=== PATIENT | male | born 1935 | race Caucasian/White ===

== ENCOUNTER → 2018-11-20 | Outpatient (CLI) | payer MEDICARE, BC ==
--- NOTE | 2018-11-20 16:30 | CT ---
EXAMINATION TYPE: CT abdomen pelvis w con DATE OF EXAM: 11/20/2018 COMPARISON: None HISTORY: Hematuria. CT DLP: 690.5 mGycm CONTRAST: CT scan of the abdomen and pelvis is performed with Oral Contrast and with IV Contrast, patient injec lloyd with 80ml mL of Isovue M300. FINDINGS: LUNG BASES-: 6.2 mm left lower lobe pulmonary nodule. 2 mm left lower lobe pulmonary nodule anteriorl y. Subpleural fibrosis right lung base. LIVER/GB: Calcified gallstone noted. No space occupying hepatic lesion. Biliary tree is of normal caliber. PANCREAS: No inflammation. No distinct mass. SPLEEN: No splenic enlargement. No lesion seen. ADRENALS: No nodule. No thickening. KIDNEYS/BLADDER: No hydronephrosis. No nephrolithiasis. No distinct renal mass. Radioactive seeds are noted within the prostate gland. There is soft tissue at the base of the urinary bladder which ma y reflect residual prostate tissue however a urinary bladder mass is difficult to exclude. Correlate clinically. Renal vascular calcifications noted bilaterally. BOWEL: Normal appendix. Normal bowel caliber. No inflammation. Sliding-type hiatal hernia noted sma ll in size. GENITAL ORGANS: No gross abnormality. LYMPH NODES: No greater than 1cm abdominal or pelvic lymph nodes are appreciated. AORTA: No significant abnormality. OSSEOUS STRUCTURES: No significant abnormality is seen. OTHER: No significant additional abnormality is seen. IMPRESSION: 1. Radioactive seeds are noted within the prostate gland. There is soft tissue at the base of the uri nary bladder which may reflect residual prostate tissue however a urinary bladder mass is difficult t o exclude. Correlate clinically.
== END | disposition home or self-care (01) ==
LOC: RADCTMAIN 12:36
PROVIDERS: ATTEND Urology
DX: R31.0 Gross hematuria (principal)
CPT/HCPCS: 82565; 84520; 74177; 36415; Q9967

== ENCOUNTER → 2018-12-02 | Outpatient (CLI) | payer MEDICARE, BC ==
[2018-12-02 12:52] LABS: Basophils % (A) 0 %; Eosinophils # (A) 0.1 k/uL (0-0.7); Eosinophils % (A) 1 %; HCT 47.8 % (39.0-53.0); HGB 15.5 gm/dL (13.0-17.5); Lymphocytes # (A) 2.1 k/uL (1.0-4.8); Lymphocytes % (A) 25 %; MCH 31.9 pg (25.0-35.0); MCHC 32.3 g/dL (31.0-37.0); MCV 98.7 fL (80.0-100.0); Mean Platelet Volume 7.4; Monocytes # (A) 0.5 k/uL (0-1.0); Monocytes % (A) 6 %; Neutrophils # (A) 5.6 k/uL (1.3-7.7); Neutrophils % (A) 65 %; Platelet Count 265 k/uL (150-450); RBC 4.85 m/uL (4.30-5.90); RDW 12.8 % (11.5-15.5); WBC 8.7 k/uL (3.8-10.6)
[2018-12-02 13:02] LABS: Calcium 9.8 mg/dL (8.4-10.2); Potassium 5.2 mmol/L (3.5-5.1)
== END ==
LOC: LABPAT 11:40
PROVIDERS: ATTEND Urology
DX: Z01.818 Encounter for other preprocedural examination (principal); Z01.812 Encounter for preprocedural laboratory examination; D41.4 Neoplasm of uncertain behavior of bladder; I10 Essential (primary) hypertension; R31.0 Gross hematuria
CPT/HCPCS: 36415; 80048; 85025; 93005

== ENCOUNTER 2018-12-10 07:06 | Day surgery (SDC) | payer MEDICARE, BC ==
[2018-12-03 10:40] VITALS: BMI 22.4
--- NOTE | 2018-12-03 21:01 | P.GSHP ---
History of Present Illness H&P Date: 12/03/18 Chief Complaint: Hematuria The patient is an 83-year-old white male who presents with a three-month history of intermittent gross hematuria. He underwent brachytherapy for prostate cancer in 2002. A computed tomography scan of the abdomen and pelvis showed no renal abnormalities. Cystoscopy has shown a sessile tumor arising from the left hemitrigone. He now comes for resection. - Constitutional Constitutional: Reports weight loss - Cardiovascular Cardiovascular: Reports high blood pressure - Respiratory Respiratory: Reports dyspnea - Genitourinary (Male) Genitourinary: Reports hematuria, Reports urinary frequency Past Medical History Past Medical History: Cancer, Hyperlipidemia, Hypertension, Osteoarthritis (OA) Additional Past Medical History / Comment(s): irregular heart rate,prostate cancer, bladder tumor History of Any Multi-Drug Resistant Organisms: None Reported Past Surgical History: Heart Catheterization, Prostate Surgery Additional Past Surgical History / Comment(s): hemorrhoid surgery Past Anesthesia/Blood Transfusion Reactions: No Reported Reaction Smoking Status: Current every day smoker - Past Family History Mother Family Medical History: No Reported History Medications and Allergies Home Medications Medication Instructions Recorded Confirmed Type Aspirin [Adult Low Dose Aspirin EC] 81 mg PO HS 12/03/18 12/03/18 History Atenolol [Tenormin] 25 mg PO HS 12/03/18 12/03/18 History Lisinopril [Zestril] 2.5 mg PO HS 12/03/18 12/03/18 History Multivitamins, Thera [Multivitamin 1 tab PO HS 12/03/18 12/03/18 History (formulary)] Simvastatin [Zocor] 40 mg PO HS 12/03/18 12/03/18 History Allergies Allergy/AdvReac Type Severity Reaction Status Date / Time No Known Allergies Allergy Verified 12/03/18 10:33 Surgical - Exam - General well developed, well nourished, no distress - Respiratory normal respiratory effort, clear to auscultation - Cardiovascular Rhythm: irregularly irregular - Abdomen Abdomen: soft, non tender, no guarding, no rigid, no rebound - Genitourinary normal penis with no external lesions, testicles non-tender - Psychiatric oriented to time, oriented to person, oriented to place, speech is normal, memory intact Assessment and Plan (1) Neoplasm of uncertain behavior of bladder Status: Acute Code(s): D41.4 - NEOPLASM OF UNCERTAIN BEHAVIOR OF BLADDER SNOMED Code(s): 47145945 Plan: Cystoscopy, transurethral resection of bladder tumor. The procedure has been reviewed in detail with the patient and his . They understand that the tumor is likely malignant in nature, and the rationale for transurethral resection has been discussed. Potential risks were also discussed, which include anesthesia, bleeding, infection, postoperative urinary retention, and bladder perforation.
[~2018-12-10 07:06] MED LIST: DEXAMETHASONE SOD PHOSPHATE 10 MG/ML 1 ML VIAL IV ONE; HYDROmorphone 0.5 MG/0.5 ML SYRINGE IVP PRN; LACTATED RINGERS 1,000 ML IV SCH; LIDOCAINE 1% 20 ML VIAL (10MG/ML) FOR IV START INTRADERMA PRN; MIDAZOLAM 2 MG/2 ML VIAL IV PRN; ONDANSETRON 4 MG/2 ML VIAL IVP ONE; SCOPOLAMINE 1.5MG/72HR PATCH TRANSDERM ONE; ceFAZolin IN SWFI 2 GM/20 ML SYRINGE IVP ONE
[2018-12-10] MEDS ORDERED: PROPOFOL 10 MG/ML 20 ML VIAL IV ONE (08:36)
[2018-12-10] MEDS ORDERED: FUROSEMIDE 10 MG/ML 2 ML VIAL ONE (08:36)
[2018-12-10] MEDS ORDERED: ROCURONIUM BROMIDE 10 MG/ML 10 ML VIAL IV ONE (08:36)
[2018-12-10] MEDS ORDERED: LIDOCAINE 1% INJ 10MG/ML (20 ML MDV) ONE (08:36)
[2018-12-10] MEDS ORDERED: PHENYLEPHRINE-0.9% NACL SYG 1 MG/10 ML SYRINGE ONE (08:36)
[2018-12-10] MEDS ORDERED: ePHEDrine SULFATE/0.9% NACL/PF 50 MG/5 ML SYRINGE IV ONE (08:36)
[2018-12-10] MEDS ORDERED: GLYCOPYRROLATE 0.2 MG/ML 2 ML VIAL ONE (08:36)
[2018-12-10] MEDS ORDERED: MIDAZOLAM 2 MG/2 ML VIAL ONE (08:36)
[2018-12-10] MEDS ORDERED: NEOSTIGMINE 1 MG/ML 10 ML VIAL ONE (08:36)
[2018-12-10] MEDS ORDERED: SUCCINYLCHOLINE CHLORIDE 100 MG/5 ML SYR IV ONE (08:36)
[2018-12-10] MEDS ORDERED: fentaNYL (PF) 50 MCG/ML 2 ML AMP ONE (08:36)
[2018-12-10] MEDS ORDERED: MORPHINE SULFATE 10 MG/ML SYRINGE ONE (08:36)
[2018-12-10] MEDS ORDERED: LACTATED RINGERS 1,000 ML IV ONE (09:37)
[2018-12-10] MEDS ORDERED: FUROSEMIDE 10 MG/ML 2 ML VIAL IV ONE (09:55)
--- NOTE | 2018-12-10 10:08 | P.OP ---
Date of Procedure: 12/10/18 Preoperative Diagnosis: Bladder Tumor Postoperative Diagnosis: Same Procedure(s) Performed: Cystoscopy, TURBT (Large) Anesthesia: INNA Surgeon: Sukh Law Estimated Blood Loss (ml): 50 IV fluids (ml): 700 Pathology: other (bladder tumor fragments) Condition: stable Disposition: PACU Indications for Procedure: The patient is an 83-year-old white male who presents with a three-month history of intermittent gross hematuria. He underwent brachytherapy for prostate cancer in 2002. A computed tomography scan of the abdomen and pelvis showed no renal abnormalities. Cystoscopy has shown a sessile tumor arising from the left hemitrigone. He now comes for resection. Operative Findings: Large, sessile tumor arising from posterior bladder wall. Description of Procedure: The patient was taken in the operating room and placed in the dorsal lithotomy position, with his legs supported in Leeroy stirrups. The external genitalia was prepped and draped sterilely. The Johnnie urethrotome was used to incise the urethra to 25-Namibian. The 24-Namibian Storz resectoscope sheath was introduced into the bladder. The prostatic urethra was "snug", and the resectoscope was placed under direct vision. No tumors were seen within the prostatic urethra. The bladder was inspected. A large, sessile tumor was seen arising from the posterior bladder wall and left hemitrigone. The right ureteral orifice was identified, and clear urine effluxed from it. The left ureteral orifice was not identified. Using the cutting loop, the tumor was resected down to the muscle. The tumor has a high-grade, muscle invasive appearance. Excellent hemostasis was attained. The resected tissue was saved and sent for pathologic examination. A 20-Namibian Tillman catheter was inserted. The return was clear. The patient tolerated the procedure well. He was taken to the recovery room in stable condition.
[2018-12-10 10:31] VITALS: TEMP 96.9
[2018-12-10 10:32] VITALS: RESP 16
[2018-12-10 12:13] VITALS: BP 117/74; PULSE 66
== END 2018-12-10 12:13 | disposition home or self-care (01) ==
LOC: OR 07:06
PROVIDERS: ATTEND Urology
DX: C67.4 Malignant neoplasm of posterior wall of bladder (principal); Z85.46 Personal history of malignant neoplasm of prostate; Z92.3 Personal history of irradiation; E78.5 Hyperlipidemia, unspecified; I10 Essential (primary) hypertension; M19.90 Unspecified osteoarthritis, unspecified site; F17.200 Nicotine dependence, unspecified, uncomplicated; Z79.82 Long term (current) use of aspirin; Z79.899 Other long term (current) drug therapy
CPT/HCPCS: 84132; 88307; 52240; J2250; J1100; J1940; J2710; J2270; J2405; J2001; J3010; J2370; J0330; J2704; J0690

== ENCOUNTER 2019-09-02 12:21 | Inpatient (IN) | payer MEDICARE, BC ==
[2019-09-02] MEDS ORDERED: SODIUM CHLORIDE 0.9% 1,000 ML IV STA (12:49)
[2019-09-02] MEDS ORDERED: IPRATROPIUM-ALBUTEROL 3 ML NEB INHALATION STA (12:49)
--- NOTE | 2019-09-02 12:56 | ED ---
SOB HPI - General Chief Complaint: Shortness of Breath Stated Complaint: ARNOL Time Seen by Provider: 09/02/19 12:37 Source: patient, family, RN notes reviewed Mode of arrival: wheelchair Limitations: no limitations - History of Present Illness Initial Comments: This 85-year-old male with a history of bladder cancer and this and states per family also history of A. fib hypertension of a cholesterol who still smokes intermittently though he is ever diagnosed with COPD asthma or emphysema who states she's had shortness of breath is been going on for a couple months but now over last week is gotten progressively worse with exertional dyspnea. He states she's had edema to his lower extremities or last week also. He's had some weight loss because of decreased oral intake. He denies any fevers chills nausea vomiting sweats or other symptoms. He is working at a [employer] and was exposed to paper fibers as well as chemicals. MD Complaint: shortness of breath - Related Data Home Medications Medication Instructions Recorded Confirmed Aspirin [Adult Low Dose Aspirin EC] 81 mg PO HS 12/03/18 09/02/19 Atenolol [Tenormin] 25 mg PO HS 12/03/18 09/02/19 Lisinopril [Zestril] 2.5 mg PO HS 12/03/18 09/02/19 Multivitamins, Thera [Multivitamin 1 tab PO HS 12/03/18 09/02/19 (formulary)] Allergies Allergy/AdvReac Type Severity Reaction Status Date / Time No Known Allergies Allergy Verified 09/02/19 13:11 Review of Systems ROS Statement: Those systems with pertinent positive or pertinent negative responses have been documented in the HPI. ROS Other: All systems not noted in ROS Statement are negative. Past Medical History Past Medical History: Cancer, Hyperlipidemia, Hypertension, Osteoarthritis (OA) Additional Past Medical History / Comment(s): irregular heart rate,prostate cancer, bladder tumor History of Any Multi-Drug Resistant Organisms: None Reported Past Surgical History: Heart Catheterization, Prostate Surgery Additional Past Surgical History / Comment(s): hemorrhoid surgery bladder surg Past Anesthesia/Blood Transfusion Reactions: No Reported Reaction Past Psychological History: No Psychological Hx Reported Smoking Status: Current every day smoker Past Alcohol Use History: None Reported Past Drug Use History: None Reported - Past Family History Mother Family Medical History: No Reported History General Exam - General Exam Comments Initial Comments: This is a well-developed asthenic appearing male who is awake alert oriented 3 Limitations: no limitations General appearance: alert, in no apparent distress Head exam: Present: atraumatic, normocephalic, normal inspection Eye exam: Present: normal appearance, PERRL, EOMI. Absent: scleral icterus, conjunctival injection, periorbital swelling ENT exam: Present: mucous membranes dry Neck exam: Present: normal inspection. Absent: tenderness, meningismus, lymphadenopathy Respiratory exam: Present: decreased breath sounds. Absent: respiratory distress, wheezes, rales, rhonchi, stridor Cardiovascular Exam: Present: tachycardia, irregular rhythm. Absent: systolic murmur, diastolic murmur, rubs, gallop, clicks GI/Abdominal exam: Present: soft, normal bowel sounds. Absent: distended, tenderness, guarding, rebound, rigid Extremities exam: Present: full ROM, normal capillary refill, pedal edema. Absent: tenderness, joint swelling, calf tenderness Back exam: Present: normal inspection Neurological exam: Present: alert, oriented X3, CN II-XII intact Psychiatric exam: Present: normal affect, normal mood Skin exam: Present: warm, dry, intact, normal color. Absent: rash Course Vital Signs 09/02/19 09/02/19 09/02/19 12:31 12:57 13:06 Temperature 97.4 F L Pulse Rate 76 72 72 Respiratory 18 16 16 Rate Blood Pressure 90/50 O2 Sat by Pulse 89 L Oximetry 09/02/19 09/02/19 13:47 13:52 Temperature Pulse Rate 120 H Respiratory 18 Rate Blood Pressure 132/77 O2 Sat by Pulse 92 L 100 Oximetry - Reevaluation(s) Reevaluation #1: 09/02/19 15:47 Reevaluation patient revealed he had some improvement after the nebulizer treatment during observation however was on his heart rate was as high as in the 130s 140s. I did discuss these Dr. Santillan the patient will be admitted for treatment of pneumonia. Due to the atrial fibrillation and will consult cardiology. Medical Decision Making - Lab Data Result diagrams: 09/02/19 13:00 09/02/19 13:00 Lab Results 09/02/19 09/02/19 09/02/19 Range/Units 13:00 13:00 13:52 WBC 13.8 H (3.8-10.6) k/uL RBC 3.74 L (4.30-5.90) m/uL Hgb 10.0 L (13.0-17.5) gm/dL Hct 33.5 L (39.0-53.0) % MCV 89.7 (80.0-100.0) fL MCH 26.7 (25.0-35.0) pg MCHC 29.8 L (31.0-37.0) g/dL RDW 14.4 (11.5-15.5) % Plt Count 270 (150-450) k/uL Neutrophils % 81 % Lymphocytes % 11 % Monocytes % 5 % Eosinophils % 0 % Basophils % 0 % Neutrophils # 11.2 H (1.3-7.7) k/uL Lymphocytes # 1.5 (1.0-4.8) k/uL Monocytes # 0.7 (0-1.0) k/uL Eosinophils # 0.0 (0-0.7) k/uL Basophils # 0.0 (0-0.2) k/uL Hypochromasia Marked Poikilocytosis Slight PT (9.0-12.0) sec INR (<1.2) APTT (22.0-30.0) sec Sodium 142 (137-145) mmol/L Potassium 4.4 (3.5-5.1) mmol/L Chloride 110 H (98-107) mmol/L Carbon Dioxide 20 L (22-30) mmol/L Anion Gap 12 mmol/L BUN 19 (9-20) mg/dL Creatinine 1.07 (0.66-1.25) mg/dL Est GFR (CKD-EPI)AfAm 75 (>60 ml/min/1.73 sqM) Est GFR (CKD-EPI)NonAf 65 (>60 ml/min/1.73 sqM) Glucose 111 H (74-99) mg/dL Calcium 9.0 (8.4-10.2) mg/dL Magnesium 2.0 (1.6-2.3) mg/dL Total Bilirubin 0.7 (0.2-1.3) mg/dL AST 62 H (17-59) U/L ALT 20 L (21-72) U/L Alkaline Phosphatase 119 (38-126) U/L Troponin I <0.012 (0.000-0.034) ng/mL NT-Pro-B Natriuret Pep pg/mL Total Protein 6.9 (6.3-8.2) g/dL Albumin 3.2 L (3.5-5.0) g/dL 09/02/19 09/02/19 Range/Units 13:52 13:52 WBC (3.8-10.6) k/uL RBC (4.30-5.90) m/uL Hgb (13.0-17.5) gm/dL Hct (39.0-53.0) % MCV (80.0-100.0) fL MCH (25.0-35.0) pg MCHC (31.0-37.0) g/dL RDW (11.5-15.5) % Plt Count (150-450) k/uL Neutrophils % % Lymphocytes % % Monocytes % % Eosinophils % % Basophils % % Neutrophils # (1.3-7.7) k/uL Lymphocytes # (1.0-4.8) k/uL Monocytes # (0-1.0) k/uL Eosinophils # (0-0.7) k/uL Basophils # (0-0.2) k/uL Hypochromasia Poikilocytosis PT 10.3 (9.0-12.0) sec INR 1.0 (<1.2) APTT 22.0 (22.0-30.0) sec Sodium (137-145) mmol/L Potassium (3.5-5.1) mmol/L Chloride (98-107) mmol/L Carbon Dioxide (22-30) mmol/L Anion Gap mmol/L BUN (9-20) mg/dL Creatinine (0.66-1.25) mg/dL Est GFR (CKD-EPI)AfAm (>60 ml/min/1.73 sqM) Est GFR (CKD-EPI)NonAf (>60 ml/min/1.73 sqM) Glucose (74-99) mg/dL Calcium (8.4-10.2) mg/dL Magnesium (1.6-2.3) mg/dL Total Bilirubin (0.2-1.3) mg/dL AST (17-59) U/L ALT (21-72) U/L Alkaline Phosphatase (38-126) U/L Troponin I (0.000-0.034) ng/mL NT-Pro-B Natriuret Pep 2560 pg/mL Total Protein (6.3-8.2) g/dL Albumin (3.5-5.0) g/dL - EKG Data -: EKG Interpreted by Me (Atrial fibrillation with a rate of 124 QRS 92 QT since QTC 332/476 low-volt) Critical Care Time Critical Care Time: Yes Critical Care Time: 33 minutes of critical care time which includes initial presentation with history physical labs x-rays several reevaluation the patient response to therapy discuss with the patient family regarding the findings discussion with the admitting physician admission orders and documentation of the above Disposition Clinical Impression: Community acquired bilateral lower lobe pneumonia, Acute bronchospasm, Rapid atrial fibrillation, CHF (congestive heart failure), Bladder cancer Disposition: ADMITTED IP TO THIS HOSP Condition: Serious Referrals: Zuhair Call DO [Primary Care Provider] - 1-2 days
[2019-09-02 13:20] LABS: Albumin 3.2 g/dL (3.5-5.0); Total Bilirubin 0.7 mg/dL (0.2-1.3); Total Protein 6.9 g/dL (6.3-8.2)
[2019-09-02 13:24] LABS: Potassium 4.4 mmol/L (3.5-5.1)
[2019-09-02 13:35] LABS: Basophils % (A) 0 %; Eosinophils % (A) 0 %; HCT 33.5 % (39.0-53.0); Hypochromasia Marked; Lymphocytes # (A) 1.5 k/uL (1.0-4.8); Lymphocytes % (A) 11 %; MCH 26.7 pg (25.0-35.0); MCHC 29.8 g/dL (31.0-37.0); MCV 89.7 fL (80.0-100.0); Monocytes # (A) 0.7 k/uL (0-1.0); Monocytes % (A) 5 %; Neutrophils # (A) 11.2 k/uL (1.3-7.7); Neutrophils % (A) 81 %; Platelet Count 270 k/uL (150-450); Poikilocytosis Slight; RBC 3.74 m/uL (4.30-5.90); RDW 14.4 % (11.5-15.5); WBC 13.8 k/uL (3.8-10.6)
--- NOTE | 2019-09-02 13:36 | XR ---
EXAMINATION TYPE: XR chest 2V DATE OF EXAM: 09/02/2019 COMPARISON: NONE TECHNIQUE: PA and lateral views submitted. HISTORY: Shortness of breath FINDINGS: There is a small left pleural effusion and tiny right effusion. There is a nodular density overlying the lateral margin of the right midlung. The heart is prominent. There is no pneumothorax or overt fa ilure. Degenerative changes spine. Hyperinflation suggests COPD. Suspect a soft tissue fold along the lateral margin left lower lobe. IMPRESSION: 1. COPD with bilateral infiltrate and small effusion. 7 mm nodule in the right midlung CT scan sugges lloyd. 2. Suspect a soft tissue fold overlying the lower left chest rather than small pneumothorax correlate clinically.
[2019-09-02 14:14] LABS: Prothrombin Time 10.3 sec (9.0-12.0)
[2019-09-02] MEDS ORDERED: cefTRIAXone IN SWFI 1,000 MG/10 ML SYRINGE IVP STA (15:35)
[2019-09-02] MEDS ORDERED: FUROSEMIDE 10 MG/ML 4 ML VIAL IV STA (15:52)
[2019-09-02] MEDS ORDERED: AZITHROMYCIN 500 MG in SODIUM CHLORIDE 0.9% 250 ML IVPB STA (15:55)
[2019-09-02] MEDS ORDERED: PNEUMONIA PROTOCOL UTILIZED 1 EACH MISC PO PRN (15:55)
[2019-09-02] MEDS: DILTIAZEM 125 MG in SODIUM CHLORIDE 0.9% 100 ML IV SCH (16:36)
[2019-09-02] MEDS: IPRATROPIUM-ALBUTEROL 3 ML NEB INHALATION SCH ×2 (17:11→20:54)
[2019-09-02] MEDS: methylPREDNISolone SOD SUCCI 125 MG/2 ML VIAL IV SCH (19:57)
[2019-09-02] MEDS ORDERED: ASPIRIN 81 MG PO SCH (21:00)
[2019-09-02] MEDS ORDERED: ATENOLOL 25 MG TAB PO SCH (21:00)
[2019-09-02] MEDS: MULTIVITAMINS, THERA 1 EACH TAB PO SCH (21:45)
[2019-09-02] MEDS: LISINOPRIL 2.5 MG TAB PO SCH (21:45)
[2019-09-03] MEDS: methylPREDNISolone SOD SUCCI 125 MG/2 ML VIAL IV SCH ×5 (00:03→23:51)
[2019-09-03] MEDS: IPRATROPIUM-ALBUTEROL 3 ML NEB INHALATION SCH ×6 (03:24→20:48)
[2019-09-03 08:29] LABS: Basophils % (A) 0 %; Eosinophils % (A) 0 %; HCT 29.2 % (39.0-53.0); HGB 8.9 gm/dL (13.0-17.5); Hypochromasia Marked; Lymphocytes # (A) 0.9 k/uL (1.0-4.8); Lymphocytes % (A) 8 %; MCH 27.5 pg (25.0-35.0); MCHC 30.5 g/dL (31.0-37.0); MCV 90.3 fL (80.0-100.0); Mean Platelet Volume 6.2; Monocytes # (A) 0.1 k/uL (0-1.0); Monocytes % (A) 1 %; Neutrophils # (A) 10.4 k/uL (1.3-7.7); Neutrophils % (A) 91 %; Platelet Count 269 k/uL (150-450); Poikilocytosis Slight; RBC 3.24 m/uL (4.30-5.90); RDW 14.2 % (11.5-15.5); WBC 11.5 k/uL (3.8-10.6)
[2019-09-03 08:32] LABS: Calcium 8.7 mg/dL (8.4-10.2); Potassium 3.3 mmol/L (3.5-5.1); Total Bilirubin 0.5 mg/dL (0.2-1.3); Total Protein 6.4 g/dL (6.3-8.2)
[2019-09-03] MEDS: AZITHROMYCIN 500 MG TAB PO SCH (08:41)
--- NOTE | 2019-09-03 11:03 | P.CRDCN ---
History of Present Illness Consult date: 09/03/19 Requesting physician: Hali Santillan Consult reason: atrial fibrillation Chief complaint: Shortness of breath History of present illness: This is an 84-year-old gentleman who follows regularly with Dr. Cardona in the office, he has a history of bladder cancer, hypertension, hyperlipidemia, nicotine dependence, COPD, presented to the hospital with 2 to three-week duration of progressively worsening shortness of breath. Patient does state that he has a mild cough but it has been nonproductive at home. Shortness of breath seems to be worse when he exerts himself. EKG on presentation here showed atrial fibrillation with a rapid ventricular response, occasional PVCs. Incomplete right bundle branch block pattern. According to Dr. Cardona's office note, the patient does have a history of atrial fibrillation in the past. It does not appear that the patient had been initiated on anticoagulation. Chest x-ray on presentation here showed COPD with bilateral infiltrate and small effu raymond. 7 mm nodule in the right midlung computed tomography scan is recommended. Suspect a soft tissue fold-over overlying the left lower chest rather than small pneumothorax. Blood pressure this morning 97/50 with a heart rate in the 90s. Patient continues to be in atrial fibrillation. White blood cell count on admission 13.8, 11.5 this morning, hemoglobin 10 on admission 8.9 this morning, platelet count 269. Sodium 145, potassium 3.3, BUN 22 and creatinine 1.0. Magnesium level 2.0. Troponin 0.012, BNP level 2560. Past Medical History Past Medical History: Cancer, Hyperlipidemia, Hypertension, Osteoarthritis (OA) Additional Past Medical History / Comment(s): irregular heart rate,prostate cancer, bladder tumor History of Any Multi-Drug Resistant Organisms: None Reported Past Surgical History: Heart Catheterization, Prostate Surgery Additional Past Surgical History / Comment(s): hemorrhoid surgery bladder surg Past Anesthesia/Blood Transfusion Reactions: No Reported Reaction Past Psychological History: No Psychological Hx Reported Smoking Status: Light tobacco smoker Past Alcohol Use History: None Reported Additional Past Alcohol Use History / Comment(s): pt states he smokes 2-3 cigarettes in a day, but not an every day smoker. Past Drug Use History: None Reported - Past Family History Mother Family Medical History: No Reported History Medications and Allergies Home Medications Medication Instructions Recorded Confirmed Type Aspirin [Adult Low Dose Aspirin EC] 81 mg PO HS 12/03/18 09/02/19 History Atenolol [Tenormin] 25 mg PO HS 12/03/18 09/02/19 History Lisinopril [Zestril] 2.5 mg PO HS 12/03/18 09/02/19 History Multivitamins, Thera [Multivitamin 1 tab PO HS 12/03/18 09/02/19 History (formulary)] Allergies Allergy/AdvReac Type Severity Reaction Status Date / Time No Known Allergies Allergy Verified 09/02/19 13:11 Physical Exam Vitals: Vital Signs Temp Pulse Pulse Resp BP BP Pulse Ox 09/03/19 08:00 97.5 F L 68 67 18 97/53 09/03/19 07:17 64 09/03/19 04:00 98.2 F 75 16 101/62 100 09/03/19 03:33 68 09/03/19 03:24 69 99 09/03/19 00:13 68 09/03/19 00:04 68 09/03/19 00:00 98.2 F 68 16 99/57 100 09/02/19 21:07 72 09/02/19 20:55 70 99 09/02/19 20:30 98 F 89 16 131/66 98 09/02/19 20:00 98.1 F 99 94 16 120/70 128/65 96 09/02/19 19:40 73 18 120/70 99 09/02/19 19:38 91 19 99 09/02/19 18:00 93 20 110/69 97 09/02/19 15:56 87 20 142/84 96 09/02/19 15:00 88 20 142/76 98 09/02/19 13:52 100 09/02/19 13:47 120 H 18 132/77 92 L 09/02/19 13:06 72 16 09/02/19 12:57 72 16 09/02/19 12:31 97.4 F L 76 18 90/50 89 L Intake and Output 09/02/19 09/03/19 09/03/19 22:59 06:59 14:59 Intake Total 200 72 Balance 200 72 Intake: Intake, IV Titration 200 72 Amount Diltiazem 125 mg In 72 Sodium Chloride 0.9% 100 ml @ 5 MG/HR 5 mls/hr IV .Q24H [facility] Rx#:[id number] Sodium Chloride 0.9% 1, 200 000 ml @ 50 mls/hr IV . Q20H [facility] Rx#:[id number] Other: Voiding Method Toilet Toilet # Voids 1 Weight 58.7 kg PHYSICAL EXAMINATION: GENERAL: 84-year-old gentleman in no acute stress at the time of my examination HEENT: Head is atraumatic, normocephalic. Pupils equal, round. Sclera anicteric. Conjunctiva are clear. Mucous membranes of the mouth are moist. Neck is supple. There is no elevated jugular venous pressure. No carotid bruit is heard. HEART EXAMINATION: S1 and S2 irregularly irregular CHEST EXAMINATION: Lungs reveal some scattered wheezes with diminished air entry to bilateral bases. ABDOMEN: Soft, nontender. Bowel sounds are heard. No organomegaly noted. EXTREMITIES: 2+ peripheral pulses with trace edema to the right lower extremity no edema to the left . NEUROLOGIC patient is awake, alert and oriented 3 . . Results 09/03/19 07:50 09/03/19 07:50 Cardiac Enzymes 09/02/19 09/02/19 09/03/19 Range/Units 13:00 13:52 07:50 AST 62 H 43 (17-59) U/L Troponin I <0.012 (0.000-0.034) ng/mL Coagulation 09/02/19 Range/Units 13:52 PT 10.3 (9.0-12.0) sec APTT 22.0 (22.0-30.0) sec CBC 09/02/19 09/03/19 Range/Units 13:00 07:50 WBC 13.8 H 11.5 H (3.8-10.6) k/uL RBC 3.74 L 3.24 L (4.30-5.90) m/uL Hgb 10.0 L 8.9 L (13.0-17.5) gm/dL Hct 33.5 L 29.2 L (39.0-53.0) % Plt Count 270 269 (150-450) k/uL Comprehensive Metabolic Panel 09/02/19 09/03/19 Range/Units 13:00 07:50 Sodium 142 145 (137-145) mmol/L Potassium 4.4 3.3 L (3.5-5.1) mmol/L Chloride 110 H 107 (98-107) mmol/L Carbon Dioxide 20 L 26 (22-30) mmol/L BUN 19 22 H (9-20) mg/dL Creatinine 1.07 1.05 (0.66-1.25) mg/dL Glucose 111 H 151 H (74-99) mg/dL Calcium 9.0 8.7 (8.4-10.2) mg/dL AST 62 H 43 (17-59) U/L ALT 20 L 22 (21-72) U/L Alkaline Phosphatase 119 97 (38-126) U/L Total Protein 6.9 6.4 (6.3-8.2) g/dL Albumin 3.2 L 3.0 L (3.5-5.0) g/dL Current Medications Generic Name Dose Route Start Last Admin Trade Name Freq PRN Reason Stop Dose Admin Albuterol/Ipratropium 3 ml 09/02/19 16:00 09/03/19 07:16 Duoneb 0.5 Mg-3 Mg/3 Ml Soln INHALATION 3 ml RT-Q4H ORAL Administration Aspirin 81 mg 09/02/19 21:00 09/02/19 21:45 Aspirin PO 81 mg HS ORAL Administration Atenolol 25 mg 09/02/19 21:00 09/02/19 21:45 Tenormin PO 25 mg HS ORAL Administration Azithromycin 500 mg 09/03/19 09:00 09/03/19 08:41 Zithromax PO 500 mg DAILY ORAL Administration Diltiazem HCl 125 mg/ Sodium 125 mls @ 5 mls/hr 09/02/19 16:00 09/03/19 07:00 Chloride IV 0 mg/hr .Q24H ORAL 0 mls/hr Infusion 5 MG/HR Ceftriaxone Sodium 1 gm/ 50 mls @ 100 mls/hr 09/03/19 09:00 09/03/19 08:40 Sodium Chloride IVPB 09/06/19 09:01 100 mls/hr Q24HR ORAL Administration Insulin Aspart 0 unit 09/03/19 12:30 Novolog SQ ACHS ORAL Protocol Lisinopril 2.5 mg 09/02/19 21:00 09/02/19 21:45 Zestril PO 2.5 mg HS ORAL Administration Methylprednisolone Sodium Succinate 60 mg 09/02/19 18:00 09/03/19 08:41 Solu-Medrol IV 60 mg Q6HR ORAL Administration Miscellaneous Information 1 each 09/02/19 15:55 Pneumonia Protocol Utilized PO ONCE PRN Per Protocol Multivitamins 1 each 09/02/19 21:00 09/02/19 21:45 Theragran PO 1 each HS ORAL Administration Intake and Output 09/02/19 09/03/19 09/03/19 22:59 06:59 14:59 Intake Total 200 72 Balance 200 72 Intake: Intake, IV Titration 200 72 Amount Diltiazem 125 mg In 72 Sodium Chloride 0.9% 100 ml @ 5 MG/HR 5 mls/hr IV .Q24H [facility] Rx#:[id number] Sodium Chloride 0.9% 1, 200 000 ml @ 50 mls/hr IV . Q20H [facility] Rx#:[id number] Other: Voiding Method Toilet Toilet # Voids 1 Weight 58.7 kg 09/03/19 07:50 09/03/19 07:50 EKG Interpretations (text) EKG shows fibrillation with moderately rapid ventricular response, incomplete right bundle branch block pattern, occasional PVC and nonspecific ST-T wave changes Assessment and Plan Plan: Assessment and plan #1 symptoms of progressively worsening shortness of breath with evidence of mild congestive cardiac failure, most recent echo performed in the office showed a normal LV function, diastolic acute on chronic. Possible acute tracheobron chitis. #2 atrial fibrillation with moderately rapid ventricular response, patient has documented paroxysmal atrial fibrillation in the past, not currently on anticoagulation #3 hyperlipidemia #4 nicotine dependence #5 hypertension #6 hypertension #7 history of bladder cancer #87 mm nodule noticed on chest x-ray Plan We will obtain a repeat echocardiogram with Doppler study. We will also discont inue the Tenormin and put the patient on metoprolol. We will start the patient on Eliquis and check regarding coverage for this. We will check a TSH level. Patient was given a one-time dose of IV Lasix in the emergency room, we will give him 2 more doses today. Monitor his intake and output along with daily weights and daily lytes BUN and creatinine. If his rate is under better control with the beta nick we will discontinue the IV Cardizem drip. Further recommendations to follow. DNP note has been reviewed, I agree with a documented findings and plan of care. Patient was seen and examined.
--- NOTE | 2019-09-03 12:22 | CT ---
EXAMINATION TYPE: CT chest wo con DATE OF EXAM: 09/03/2019 COMPARISON: Chest x-ray from yesterday and today. HISTORY: Nodule, SOB CT DLP: 276.7 mGycm. Automated Exposure Control for Dose Reduction was Utilized. TECHNIQUE: CT scan of the thorax is performed without IV contrast. FINDINGS: LUNGS: Confirmation of small nonsimple left pleural effusion or fluid collection which does not compl etely layer dependently with associated left basilar compressive atelectasis. Subtle suspicious spicu lated posterior left upper lobe nodule seen in both coronal image 70 measuring 1.9 x 1.7 cm worrisome for neoplasm. Background mild emphysematous change with mild peripheral reticulation and/or fibrosis throughout the upper lungs. There is more prominent moderate parenchymal scarring posteriorly right lower lobe and there are axial image 46. Possible second nodule but favor nodular consolidation or ro unded atelectasis right middle lobe abutting the right heart border X much 47 measuring 1.7 x 1.0 cm. Mild linear scarring and atelectasis in both bases. No significant right-sided effusion. No pneumoth orax is evident bilaterally. MEDIASTINUM: Lack of IV contrast is noted to limit evaluation for mediastinal and especially hilar a denopathy. There are no definitive greater than 1 cm hilar or mediastinal lymph nodes. No cardiomeg farrah or pericardial effusion is seen. Coronary artery calcifications present which is noted marker for underlying coronary artery disease. OTHER: There is 7 mm dependent calcified gallstone axial image 73. [id number] spurring in the t horacolumbar spine. Bridging of the left lateral mid ribs. Present coronal image 58. Suspect addition al old left lateral rib fractures. IMPRESSION: Asymmetric small left pleural nonsimple effusion or fluid collection with adjacent compre ssive atelectasis. Background [id number] emphysematous and parenchymal fibrotic changes with ivan spicious posterior left upper lung nodule worrisome for neoplasm. Advise PET CT follow-up.
--- NOTE | 2019-09-03 12:25 | CONS ---
CONSULTATION DATE OF SERVICE: 09/03/2019 HISTORY OF PRESENT ILLNESS: Patient is an 84-year-old male who has been experiencing worsening shortness of breath for the last few months. Patient states this last week the shortness of breath had become progressively worse. Patient also experiencing lower extremity edema with decreased appetite, weight loss, approximately 30 pounds over the past 3 months. Patient does have a history of bladder cancer for which he underwent TURB in November. According to patient's , part of the tumor was removed; however, the entire tumor could not be removed due to fear of injuring the bladder and at that time, patient decided to forego any further treatment. Patient denies any fever or chills. Denies nausea or vomiting. Denies any night sweats. Does complain of difficulty walking as of late and does have a history of osteoarthritis. PAST MEDICAL HISTORY: Significant for prostate cancer, bladder cancer, osteoarthritis, atrial fibrillation, hypertension, high cholesterol. PAST SURGICAL HISTORY: Significant for prostate surgery, tumor removed from the bladder and hemorrhoid surgery. ALLERGIES: No known drug allergies. MEDICATIONS: Patient is on at home include a multivitamin daily, Zestril 2.5 mg p.o. q.h.s., Tenormin 25 mg p.o. q.h.s., and a low-dose aspirin daily. SOCIAL HISTORY: Patient does have a history of smoking for over 20 years. Continues to smoke periodically. Patient does drink alcohol occasionally. Denies any illicit drug use. Patient is retired from a [employer] company. FAMILY HISTORY: Noncontributory. REVIEW OF SYSTEMS: General is significant for decreased appetite and weight loss of approximately 30 pounds over the past 3 months. HEENT: Negative. RESPIRATORY: Positive for shortness of breath. Patient denies any cough. CARDIOVASCULAR: Negative for any chest pain. GI: Significant for decreased appetite. Negative for nausea, vomiting, diarrhea, or constipation. : Positive for hematuria at times. Denies dysuria. ENDOCRINE: Negative for diabetes mellitus or thyroid disease. MUSCULOSKELETAL: Positive for history of osteoarthritis. NEUROLOGIC: Negative for any history of seizures. PHYSICAL EXAM: General: Patient is an 84-year-old male seen lying in bed, awake, alert, a bit frustrated with questions on history and physical. VITAL SIGNS: Temp is 97.7, heart rate is 69, respiratory rate is 18, blood pressure is 100/53, O2 saturation 97% on room air. HEENT: Head is normocephalic, atraumatic. Pupils equal, round, react to light. Ears and nose, no discharge is noted. Mouth with moist mucous membranes. No pharyngeal erythema is noted. NECK: Supple. Trachea is midline. No lymphadenopathy. HEART: S1, S2 are heard. Irregular, not tachycardic. LUNGS: With fair air entry bilaterally. No rales or wheezes. Prolonged expiratory phase, diminished bases. ABDOMEN: Soft. Bowel sounds are positive. EXTREMITIES: With no edema. NEUROLOGIC: Patient is awake, alert, oriented. LABS: White count is 11.5, hemoglobin is 8.9, hematocrit is 29.2 with 269,000 platelets. Sodium is 145, potassium is 3.3, chloride is 107, CO2 is 26, anion gap is 12, BUN is 22, creatinine is 1.05, glucose is 151, calcium is 8.7, total bilirubin 0.5, AST 43, ALT 22, alkaline phosphatase is 97. Troponin is less than 0.012. BNP 2560. Total protein 6.4, albumin is 3.0. IMAGING: Chest x-ray impression COPD with bilateral infiltrate and small effusion, a 7 mm nodule in the right mid lung. CT scan suggested. Suspect a soft tissue fold overlying the left lower chest rather than small pneumothorax. Correlate clinically. IMPRESSION: 1. Possible lower lobe pneumonia. 2. Suspected chronic obstructive pulmonary disease with acute exacerbation. 3. Atrial fibrillation with rapid ventricular rate. 4. Congestive heart failure. 5. Lung nodule. 6. History of bladder cancer. 7. History of prostate cancer. 8. Anemia. 9. Hypokalemia. 10.Nicotine dependence. PLAN: Agree with bronchodilators. Will add aerosolized steroids. Continue the IV Solu- Medrol. Potassium is being replaced. Patient is being followed by Cardiology and is on a Cardizem drip. Gentle diuresis. GI and DVT prophylaxis. Will check a CT of the chest without contrast. Smoking cessation is recommended. Addendum: CT of chest ordered and reviewed. Recommend PET CT as an out patient. Thank you for the consultation. We will follow patient closely with you making further changes as necessary. MMODL / IJN: [id number] / EL
[2019-09-03 12:27] LABS: Glucose,Whole Blood 185 mg/dL (75-99)
[2019-09-03] MEDS: PANTOPRAZOLE 40 MG TABLET PO SCH (12:37)
[2019-09-03] MEDS: METOPROLOL TARTRATE 25 MG TAB PO SCH ×2 (12:37→20:21)
[2019-09-03] MEDS: POTASSIUM CHLORIDE ER 20 MEQ TAB.ER PO SCH ×3 (12:37→17:42)
[2019-09-03] MEDS: INSULIN ASPART (NovoLOG) 100 UNIT/ML VIAL SQ SCH ×3 (12:37→21:21)
--- NOTE | 2019-09-03 13:44 | XR ---
EXAMINATION TYPE: XR chest 2V DATE OF EXAM: 09/03/2019 COMPARISON: Prior chest x-ray 09/02/[address] chest 09/03/2019 HISTORY: Pneumonia TECHNIQUE: Frontal and lateral views of the chest are obtained. FINDINGS: There is blunting of the costophrenic angles left greater than right. Heart size is likely stable. Aorta is dense. Prominent lung volumes suggest underlying COPD. Suspect there are coronary a rtery calcifications. No pneumothorax. Pulmonary vascularity and pauline not significant changed. Inters titium is increased. Multiple chronic left-sided rib fractures are present to include the sixth, christine nth, eighth and ninth ribs laterally. Patient is rotated. IMPRESSION: Left pleural effusion and associated atelectasis. Emphysema, interstitial lung disease. Coronary artery disease.
[2019-09-03] MEDS: DILTIAZEM 125 MG in SODIUM CHLORIDE 0.9% 100 ML IV SCH (15:09)
--- NOTE | 2019-09-03 15:50 | P.HPIM ---
History of Present Illness H&P Date: 09/03/19 Chief Complaint: Shortness of breath This is an 84-year-old male patient of Dr. 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 Patient chose to not undergo any further treatment including chemotherapy or radiation therapy. He is status post cystoscopy with partial removal of the bladder tumor. The patient does have history of atrial fibrillation had followed with Dr. Jeferson Cardona but he refused to be on any anticoagulation at that time and Dr. Brice was aware and it was decided he would be on aspirin only. He continues to state that he does not want to be on any anticoagulation. He does have mild bleeding from the bladder that has continued since bladder surgery. He states that he has had shortness of breath and a cough for couple months. He complains of increasing shortness of breath with minimal activity. Shortness of breath has progressively worsened over the last week. No fever or chills. No nausea or vomiting. He is getting around the home and driving but does little else. No blood in his stools. No nausea or vomiting but he has had weight loss and decreased appetite. Patient came into [facility] emergency center for evaluation. He was afebrile, blood pressure 90/50, pulse ox 89% on room air, heart rate 76. After nebulizer treatment his heart rate was in the 130s and 140s. WBC 13.8, hemoglobin 10, platelet count 270. Sodium 142, potassium 4.4, chloride 110, CO2 20, BUN 19 creatinine 1.07 blood sugar 111. Troponin negative. AST elevated at 62. ProBNP 2560. EKG was atrial fibrillation with a heart rate of 124. Chest x-ray reveals COPD with bilateral infiltrates and small effusion. 7 mm nodule in the right mid lung CAT scan suggested. Suspect soft tissue fold underlying the lower chest and left side rather than pneumothorax. CAT scan of the chest reveals asymmetrical small left pleural non-simple effusion or fluid collection with adjacent compressive atelectasis. Background mild to moderate emphysematous and proximal fibrotic changes with suspicious posterior left upper lung nodule worrisome for neoplasm. Advised PET scan follow-up. Repeat chest x-ray today reveals left pleural effusion and associated atelectasis. Emphysema. Interstitial lung disease. Coronary artery disease. Patient was admitted to the cardiac stepdown unit and consults placed with cardiology and pulmonary medicine. Patient's been started on azithromycin, Rocephin, IV Solu- Medrol, Cardizem drip. Review of Systems Constitutional: Reports fatigue, Reports poor appetite, Reports weakness, Reports weight loss, Denies chills, Denies fever Eyes: denies blurred vision, denies pain Ears, nose, mouth and throat: Denies headache, Denies sore throat, Denies vertigo Cardiovascular: Reports decreased exercise tolerance, Reports dyspnea on exertion, Reports shortness of breath, Denies chest pain, Denies palpitations, Denies syncope Respiratory: Reports dyspnea, Denies cough, Denies cough with sputum, Denies excessive sputum, Denies hemoptysis, Denies home oxygen, Denies wheezing Gastrointestinal: Reports loss of appetite, Denies abdominal pain, Denies constipation, Denies diarrhea, Denies melena, Denies nausea, Denies vomiting Genitourinary: Reports hematuria, Denies dysuria Musculoskeletal: Reports muscle weakness, Denies frequent falls, Denies myalgias Integumentary: Denies pruritus, Denies rash, Denies wounds Neurological: Denies change in mentation, Denies change in speech, Denies n umbness, Denies seizures, Denies weakness Psychiatric: Denies anxiety, Denies depression Past Medical History Past Medical History: Atrial Fibrillation, Cancer, Hyperlipidemia, Hypertension, Osteoarthritis (OA) Additional Past Medical History / Comment(s): prostate cancer, bladder cancer History of Any Multi-Drug Resistant Organisms: None Reported Past Surgical History: Heart Catheterization, Prostate Surgery Additional Past Surgical History / Comment(s): hemorrhoid surgery bladder surg Past Anesthesia/Blood Transfusion Reactions: No Reported Reaction Past Psychological History: No Psychological Hx Reported Smoking Status: Light tobacco smoker Past Alcohol Use History: None Reported Additional Past Alcohol Use History / Comment(s): pt states he smokes 2-3 cigarettes in a day, but not an every day smoker. He drinks a beer occasionally. He has started using a cane for the past few days. He does not have oxygen, CPAP at home. Past Drug Use History: None Reported - Past Family History Mother Family Medical History: No Reported History Additional Family Medical History / Comment(s): Mother in her 70s or 80s from some type of cancer. Father Additional Family Medical History / Comment(s): Father in his 70s or 80s from a stroke. Brother(s) Additional Family Medical History / Comment(s): Patient has 1 sister with no major medical problems. Patient does not have any brothers. Daughter(s) Additional Family Medical History / Comment(s): Patient has 2 daughters and one has hypertension. Son(s) Additional Family Medical History / Comment(s): Patient has 2 sons and one from coronary artery disease. Medications and Allergies Home Medications Medication Instructions Recorded Confirmed Type Aspirin [Adult Low Dose Aspirin EC] 81 mg PO HS 12/03/18 09/02/19 History Atenolol [Tenormin] 25 mg PO HS 12/03/18 09/02/19 History Lisinopril [Zestril] 2.5 mg PO HS 12/03/18 09/02/19 History Multivitamins, Thera [Multivitamin 1 tab PO HS 12/03/18 09/02/19 History (formulary)] Allergies Allergy/AdvReac Type Severity Reaction Status Date / Time No Known Allergies Allergy Verified 09/02/19 13:11 Physical Exam Vitals: Vital Signs Temp Pulse Pulse Resp BP BP Pulse Ox 09/03/19 11:35 68 09/03/19 11:26 68 09/03/19 11:19 97.7 F 69 18 100/53 97 09/03/19 08:00 97.5 F L 68 67 18 97/53 09/03/19 07:17 64 09/03/19 04:00 98.2 F 75 16 101/62 100 09/03/19 03:33 68 09/03/19 03:24 69 99 09/03/19 00:13 68 09/03/19 00:04 68 09/03/19 00:00 98.2 F 68 16 99/57 100 09/02/19 21:07 72 09/02/19 20:55 70 99 09/02/19 20:30 98 F 89 16 131/66 98 09/02/19 20:00 98.1 F 99 94 16 120/70 128/65 96 09/02/19 19:40 73 18 120/70 99 09/02/19 19:38 91 19 99 09/02/19 18:00 93 20 110/69 97 09/02/19 15:56 87 20 142/84 96 09/02/19 15:00 88 20 142/76 98 09/02/19 13:52 100 09/02/19 13:47 120 H 18 132/77 92 L 09/02/19 13:06 72 16 09/02/19 12:57 72 16 09/02/19 12:31 97.4 F L 76 18 90/50 89 L Intake and Output 09/02/19 09/03/19 09/03/19 22:59 06:59 14:59 Intake Total 200 72 Balance 200 72 Intake: Intake, IV Titration 200 72 Amount Diltiazem 125 mg In 72 Sodium Chloride 0.9% 100 ml @ 5 MG/HR 5 mls/hr IV .Q24H ORAL Rx#:[id number] Sodium Chloride 0.9% 1, 200 000 ml @ 50 mls/hr IV . Q20H STA Rx#:[id number] Other: Voiding Method Toilet Toilet # Voids 1 Weight 58.7 kg Gen: This is a thin cachectic appearing 84-year-old male. He is resting in bed and appears comfortable. HEENT: Head is atraumatic, normocephalic. Pupils equal, round. Sclerae is anicteric. NECK: Supple. No JVD. No lymphadenopathy. No thyromegaly. LUNGS: Diminished in the bases, prolonged expiratory phase. A few scattered wheezes. No intercostal retractions. HEART: Irregularly irregular rate and rhythm. No murmur. ABDOMEN: Soft. Bowel sounds are present. No masses. No tenderness. EXTREMITIES: No pedal edema. No calf tenderness. NEUROLOGICAL: Patient is awake, alert and oriented x3. Cranial nerves 2 through 12 are grossly intact. Results CBC & Chem 7: 09/03/19 07:50 09/03/19 07:50 Labs: Abnormal Lab Results - Last 24 Hours (Table) 09/02/19 09/02/19 09/03/19 Range/Units 13:00 13:00 07:50 WBC 13.8 H 11.5 H (3.8-10.6) k/uL RBC 3.74 L 3.24 L (4.30-5.90) m/uL Hgb 10.0 L 8.9 L (13.0-17.5) gm/dL Hct 33.5 L 29.2 L (39.0-53.0) % MCHC 29.8 L 30.5 L (31.0-37.0) g/dL Neutrophils # 11.2 H 10.4 H (1.3-7.7) k/uL Lymphocytes # 0.9 L (1.0-4.8) k/uL Potassium (3.5-5.1) mmol/L Chloride 110 H (98-107) mmol/L Carbon Dioxide 20 L (22-30) mmol/L BUN (9-20) mg/dL Glucose 111 H (74-99) mg/dL AST 62 H (17-59) U/L ALT 20 L (21-72) U/L Albumin 3.2 L (3.5-5.0) g/dL 09/03/19 Range/Units 07:50 WBC (3.8-10.6) k/uL RBC (4.30-5.90) m/uL Hgb (13.0-17.5) gm/dL Hct (39.0-53.0) % MCHC (31.0-37.0) g/dL Neutrophils # (1.3-7.7) k/uL Lymphocytes # (1.0-4.8) k/uL Potassium 3.3 L (3.5-5.1) mmol/L Chloride (98-107) mmol/L Carbon Dioxide (22-30) mmol/L BUN 22 H (9-20) mg/dL Glucose 151 H (74-99) mg/dL AST (17-59) U/L ALT (21-72) U/L Albumin 3.0 L (3.5-5.0) g/dL Thrombosis Risk Factor Assmnt - DVT/VTE Prophylaxis DVT/VTE Prophylaxis: Mechanical Prophylaxis ordered - Choose All That Apply Any of the Below Risk Factors Present?: No Other Risk Factors: Yes Each Risk Factor Represents 3 Points: Age 75 years or older Other congenital or acquired thrombophilia - If yes, enter type in comment: No Thrombosis Risk Factor Assessment Total Risk Factor Score: 3 Thrombosis Risk Factor Assessment Level: Moderate Risk Assessment and Plan Plan: 1. Possible pneumonia possible acute tracheobronchitis. Pulmonary consultation appreciated. Continue azithromycin, ceftriaxone, Pulmicort 0.5 mg twice daily, DuoNeb treatments every 4 hours as needed, Solu-Medrol 60 mg IV every 6 hours. 2. Acute exacerbation of COPD. Continue as in #1. 3. Paroxysmal atrial fibrillation presenting with RVR. Patient has been drip. Cardiology consult appreciated. Atenolol discontinued and patient started on Lopressor 25 mg twice daily. Patient is adamant he will not take anticoagulation. This was previously discussed with his core inserter Dr. Cardona. 4. Acute on chronic diastolic heart failure. Patient received 1 dose of IV Lasix. 5. Pulmonary nodule. Recommend PET scan as an outpatient. 6. History of bladder cancer status post partial tumor resection. Possible metastatic disease with weight loss. 7. History of prostate cancer. 8. Tobacco use and dependence. Smoking cessation. 9. Hypertension. Continue lisinopril 2.5 mg at bedtime, Lopressor 10. Chronic anemia was likely secondary to underlying cancer. Continue to monitor. 11. Hypokalemia status post replacement. 12. Hyperglycemia secondary to steroids. No diagnosis of IBD's. Continue NovoLog scale. 13. GI prophylaxis. Protonix daily. 14. DVT prophylaxis. MARIO cruz and SCDs. Patient will be admitted to the hospital for a minimum of 2 night stay. Discharge plan: To be determined. Most likely return home. Consult with PT and OT. Impression and plan of care have been directed as dictated by the signing physician. Judy Saleh nurse practitioner acting as scribe for signing physician.
[2019-09-03 17:14] LABS: Glucose,Whole Blood 220 mg/dL (75-99)
--- NOTE | 2019-09-03 18:46 | ECHOF ---
Referral Reason:afib MEASUREMENTS -------- HEIGHT: 152.4 cm WEIGHT: 58.5 kg BP: RVIDd: 4.3 cm (< 3.3) IVSd: 1.0 cm (0.6 - 1.1) LVIDd: 4.8 cm (3.9 - 5.3) LVPWd: 1.0 cm (0.6 - 1.1) IVSs: 1.3 cm LVIDs: 3.7 cm LVPWs: 1.4 cm LA Diam: 4.0 cm (2.7 - 3.8) LAESV Index (A-L): 28.70 ml/m Ao Diam: 3.3 cm (2.0 - 3.7) AV Cusp: 1.9 cm (1.5 - 2.6) LA Diam: 4.0 cm (2.7 - 3.8) MV EXCURSION: 23.948 mm (> 18.000) MV EF SLOPE: 124 mm/s (70 - 150) EPSS: 1.7 cm RAP: 5.00 mmHg RVSP: 38.12 mmHg FINDINGS -------- Atrial fibrillation. This was a technically adequate study. The left ventricular size is normal. Left ventricular wall thickness is normal. Overall left vent ricular systolic function is low-normal with, an EF between 50 - 55 %. The right ventricle is severely enlarged. The left atrial size is normal. Normal LA size by volume 22+/-6 ml/m2. The right atrial size is normal. There is mild aortic valve sclerosis. There is no evidence of aortic regurgitation. Mild mitral annular calcification present. Mild mitral regurgitation is present. Mild tricuspid regurgitation present. Right ventricular systolic pressure is normal at < 35 mmHg. There is no evidence of pulmonary hypertension. There is no pulmonic regurgitation present. The aortic root size is normal. Echo free space represents a pericardial fat pad. CONCLUSIONS -------- 1. Atrial fibrillation. 2. This was a technically adequate study. 3. The left ventricular size is normal. 4. Left ventricular wall thickness is normal. 5. Overall left ventricular systolic function is low-normal with, an EF between 50 - 55 %. 6. The right ventricle is severely enlarged. 7. The left atrial size is normal. 8. Normal LA size by volume 22+/-6 ml/m2. 9. The right atrial size is normal. 10. There is mild aortic valve sclerosis. 11. Mild mitral annular calcification present. 12. Mild mitral regurgitation is present. 13. Mild tricuspid regurgitation present. 14. Right ventricular systolic pressure is normal at < 35 mmHg. 15. There is no evidence of pulmonary hypertension. 16. There is no pulmonic regurgitation present. 17. The aortic root size is normal. 18. Echo free space represents a pericardial fat pad. ULTRASONIC HAND SOLDERER: Nuris Luna RDCS
[2019-09-03 20:11] LABS: Glucose,Whole Blood 180 mg/dL (75-99)
[2019-09-03] MEDS: APIXABAN 5 MG TAB PO SCH (20:21)
[2019-09-03] MEDS: MULTIVITAMINS, THERA 1 EACH TAB PO SCH (20:22)
[2019-09-03] MEDS: LISINOPRIL 2.5 MG TAB PO SCH (20:22)
[2019-09-03] MEDS: BUDESONIDE 0.5 MG/2 ML NEBU INHALATION SCH (20:48)
[2019-09-04] MEDS: IPRATROPIUM-ALBUTEROL 3 ML NEB INHALATION SCH ×7 (00:28→23:02)
[2019-09-04 06:11] LABS: Glucose,Whole Blood 178 mg/dL (75-99)
[2019-09-04] MEDS: methylPREDNISolone SOD SUCCI 125 MG/2 ML VIAL IV SCH ×3 (06:56→18:19)
[2019-09-04] MEDS: INSULIN ASPART (NovoLOG) 100 UNIT/ML VIAL SQ SCH ×4 (06:57→21:33)
[2019-09-04] MEDS: PANTOPRAZOLE 40 MG TABLET PO SCH (06:57)
[2019-09-04 07:27] LABS: Basophils % (A) 0 %; Eosinophils % (A) 0 %; HCT 27.3 % (39.0-53.0); HGB 7.9 gm/dL (13.0-17.5); Hypochromasia Marked; Lymphocytes # (A) 0.6 k/uL (1.0-4.8); Lymphocytes % (A) 3 %; MCH 25.9 pg (25.0-35.0); MCHC 29.1 g/dL (31.0-37.0); Mean Platelet Volume 7.1; Monocytes # (A) 0.3 k/uL (0-1.0); Monocytes % (A) 2 %; Neutrophils % (A) 95 %; Platelet Count 270 k/uL (150-450); Poikilocytosis Slight; RBC 3.06 m/uL (4.30-5.90); RDW 14.9 % (11.5-15.5)
[2019-09-04 08:15] LABS: Albumin 2.7 g/dL (3.5-5.0); Potassium 3.8 mmol/L (3.5-5.1); Total Bilirubin 0.3 mg/dL (0.2-1.3); Total Protein 5.9 g/dL (6.3-8.2)
[2019-09-04] MEDS: BUDESONIDE 0.5 MG/2 ML NEBU INHALATION SCH ×2 (09:05→20:39)
[2019-09-04] MEDS: METOPROLOL TARTRATE 25 MG TAB PO SCH (09:27)
[2019-09-04] MEDS: AZITHROMYCIN 500 MG TAB PO SCH (09:27)
[2019-09-04] MEDS: APIXABAN 5 MG TAB PO SCH (09:40)
[2019-09-04 11:56] LABS: Glucose,Whole Blood 208 mg/dL (75-99)
--- NOTE | 2019-09-04 12:22 | P.PN ---
Subjective Progress Note Date: 09/04/19 This is an 84-year-old gentleman who follows regularly with Dr. Cardona in the office, he has a history of bladder cancer, hypertension, hyperlipidemia, nicotine dependence, COPD, presented to the hospital with 2 to three-week duration of progressively worsening shortness of breath. Patient does state that he has a mild cough but it has been nonproductive at home. Shortness of breath seems to be worse when he exerts himself. EKG on presentation here showed atrial fibrillation with a rapid ventricular response, occasional PVCs. Incomplete right bundle branch block pattern. According to Dr. Cardona's office note, the patient does have a history of atrial fibrillation in the past. It does not appear that the patient had been initiated on anticoagulation. Chest x-ray on presentation here showed COPD with bilateral infiltrate and small effusion. 7 mm nodule in the right midlung computed tomography scan is recommended. Suspect a soft tissue fold-over overlying the left lower chest ra ther than small pneumothorax. Blood pressure this morning 97/50 with a heart rate in the 90s. Patient continues to be in atrial fibrillation. White blood cell count on admission 13.8, 11.5 this morning, hemoglobin 10 on admission 8.9 this morning, platelet count 269. Sodium 145, potassium 3.3, BUN 22 and creatinine 1.0. Magnesium level 2.0. Troponin 0.012, BNP level 2560. 09/03/19 patient started on Eliquis for atrial fibrillation. Echocardiogram revealed LV function of 50-55% with an enlarged right ventricle. No significant valvular abnormalities. TSH within normal limits. Cardizem drip discontinued and metoprolol titrated for rate control. 09/04/19 Patient states he overall feels well. He states he did have some shortness of breath when he was up ambulating in the halls.vital signs show blood pressure in the low 100s. Heart rates in the 80s to 120s. WBC count 19, hemoglobin 7.9, hematocrit 27.3, platelet 270, sodium 145, potassium 3.8, BUN 37, creatinine 1.13. Objective - Vital Signs Vital signs: Vital Signs Temp 97.5 F L 09/04/19 12:00 Pulse 65 09/04/19 12:00 Resp 16 09/04/19 12:00 BP 96/50 09/04/19 12:00 Pulse Ox 96 09/04/19 12:00 Intake & Output 09/03/19 09/04/19 09/04/19 18:59 06:59 18:59 Intake Total 912 200 180 Output Total 300 Balance 912 -100 180 Weight 58.7 kg 61.4 kg Intake: Intake, IV Titration 72 Amount Diltiazem 125 mg In 72 Sodium Chloride 0.9% 100 ml @ 5 MG/HR 5 mls/hr IV .Q24H [facility] Rx#:[id number] Oral 840 200 180 Output: Urine 300 Other: Voiding Method Toilet # Voids 1 2 - Exam GENERAL: Well-appearing, well-nourished and in no acute distress. NECK: Supple without JVD or thyromegaly. LUNGS: Breath sounds clear to auscultation bilaterally. Respiration equal and unlabored. No wheezes, rales or rhonchi. HEART: Irregular rate and rhythm without murmurs, rubs or gallops. S1 and S2 heard. EXTREMITIES: Normal range of motion, no edema. No clubbing or cyanosis. Peripheral pulses intact and strong. ambulates with a cane - Labs CBC & Chem 7: 09/04/19 06:40 09/04/19 06:40 Labs: Abnormal Lab Results - Last 24 Hours (Table) 09/03/19 09/03/19 09/03/19 Range/Units 12:25 16:57 20:10 WBC (3.8-10.6) k/uL RBC (4.30-5.90) m/uL Hgb (13.0-17.5) gm/dL Hct (39.0-53.0) % MCHC (31.0-37.0) g/dL Neutrophils # (1.3-7.7) k/uL Lymphocytes # (1.0-4.8) k/uL Chloride (98-107) mmol/L BUN (9-20) mg/dL Glucose (74-99) mg/dL POC Glucose (mg/dL) 185 H 220 H 180 H (75-99) mg/dL Total Protein (6.3-8.2) g/dL Albumin (3.5-5.0) g/dL 09/04/19 09/04/19 09/04/19 Range/Units 06:10 06:40 06:40 WBC 19.0 H (3.8-10.6) k/uL RBC 3.06 L (4.30-5.90) m/uL Hgb 7.9 L (13.0-17.5) gm/dL Hct 27.3 L (39.0-53.0) % MCHC 29.1 L (31.0-37.0) g/dL Neutrophils # 18.0 H (1.3-7.7) k/uL Lymphocytes # 0.6 L (1.0-4.8) k/uL Chloride 109 H (98-107) mmol/L BUN 37 H (9-20) mg/dL Glucose 143 H (74-99) mg/dL POC Glucose (mg/dL) 178 H (75-99) mg/dL Total Protein 5.9 L (6.3-8.2) g/dL Albumin 2.7 L (3.5-5.0) g/dL 09/04/19 Range/Units 11:51 WBC (3.8-10.6) k/uL RBC (4.30-5.90) m/uL Hgb (13.0-17.5) gm/dL Hct (39.0-53.0) % MCHC (31.0-37.0) g/dL Neutrophils # (1.3-7.7) k/uL Lymphocytes # (1.0-4.8) k/uL Chloride (98-107) mmol/L BUN (9-20) mg/dL Glucose (74-99) mg/dL POC Glucose (mg/dL) 208 H (75-99) mg/dL Total Protein (6.3-8.2) g/dL Albumin (3.5-5.0) g/dL Microbiology - Last 24 Hours (Table) 09/02/19 16:00 Blood Culture - Preliminary Blood No Growth after 24 hours 09/02/19 16:15 Blood Culture - Preliminary Blood No Growth after 24 hours Assessment and Plan Assessment: #1 diastolic heart failure, acute on chronic. #2 atrial fibrillation with moderately rapid ventricular response, started on Eliquis #3 hyperlipidemia #4 nicotine dependence #5 hypertension #6 hypertension #7 anemia, unspecified Plan: we will increase metoprolol to 50 mg twice daily for rate control. Encourage ambulation to assess rate control with activity.
--- NOTE | 2019-09-04 14:28 | P.PN ---
Subjective Progress Note Date: 09/04/19 This is an 84-year-old male patient of Dr. Call with past medical history significant for hypertension, hyperlipidemia, osteoarthritis, COPD, tobacco use and dependence, prostate cancer diagnosed approximately 18 years ago, bladder cancer with pathology positive for invasive high-grade pap illary urothelial carcinoma in November 2018. Patient chose to not undergo any further treatment including chemotherapy or radiation therapy. He is status post cystoscopy with partial removal of the bladder tumor. The patient does have history of atrial fibrillation had followed with Dr. Jeferson Cardona but he refused to be on any anticoagulation at that time and Dr. Brice was aware and it was decided he would be on aspirin only. He continues to state that he does not want to be on any anticoagulation. He does have mild bleeding from the bladder that has continued since bladder surgery. He states that he has had shortness of breath and a cough for couple months. He complains of increasing shortness of breath with minimal activity. Shortness of breath has progressively worsened over the last week. No fever or chills. No nausea or vomiting. He is getting around the home and driving but does little else. No blood in his stools. No nausea or vomiting but he has had weight loss and decreased appetite. Patient came into [facility] emergency center for evaluation. He was afebrile, blood pressure 90/50, pulse ox 89% on room air, heart rate 76. After nebulizer treatment his heart rate was in the 130s and 140s. WBC 13.8, hemoglobin 10, platelet count 270. Sodium 142, potassium 4.4, chloride 110, CO2 20, BUN 19 creatinine 1.07 blood sugar 111. Troponin negative. AST elevated at 62. ProBNP 2560. EKG was atrial fibrillation with a heart rate of 124. Chest x-ray reveals COPD with bilateral infiltrates and small effusion. 7 mm nodule in the right mid lung CAT scan suggested. Suspect soft tissue fold underlying the lower chest and left side rather than pneumothorax. CAT scan of the chest reveals asymmetrical small left pleural non-simple effusion or fluid collection with adjacent compressive atelectasis. Background mild to moderate emphysematous and proximal fibrotic changes with suspicious posterior left upper lung nodule worrisome for neoplasm. Advised PET scan follow-up. Repeat chest x-ray today reveals left pleural effusion and associated atelectasis. Emphysema. Interstitial lung disease. Coronary artery disease. Patient was admitted to the cardiac stepdown unit and consults placed with cardiology and pulmonary medicine. Patient's been started on azithromycin, Rocephin, IV Solu- Medrol, Cardizem drip. 09/04: Patient is sitting up in bed in no apparent distress, he appears to be quite confused yesterday according to nursing staff, he is feeling a bit better today denies any chest pain or shortness breath, he denies any abdominal pain, no nausea or vomiting and no apparent hematuria. Review of Systems Constitutional: Reports fatigue, Reports poor appetite, Reports weakness, Reports weight loss, Denies chills, Denies fever Eyes: denies blurred vision, denies pain Ears, nose, mouth and throat: Denies headache, Denies sore throat, Denies vertigo Cardiovascular: Reports decreased exercise tolerance, Reports dyspnea on exertion, Reports shortness of breath, Denies chest pain, Denies palpitations, Denies syncope Respiratory: Reports dyspnea, Denies cough, Denies cough with sputum, Denies excessive sputum, Denies hemoptysis, Denies home oxygen, Denies wheezing Gastrointestinal: Reports loss of appetite, Denies abdominal pain, Denies constipation, Denies diarrhea, Denies melena, Denies nausea, Denies vomiting Genitourinary: Reports hematuria, Denies dysuria Musculoskeletal: Reports muscle weakness, Denies frequent falls, Denies myalgias Integumentary: Denies pruritus, Denies rash, Denies wounds Neurological: Denies change in mentation, Denies change in speech, Denies numbness, Denies seizures, Denies weakness Psychiatric: Denies anxiety, Denies depressio Objective - Vital Signs Vital signs: Vital Signs Temp 98 F 09/04/19 00:00 Pulse 90 09/04/19 04:00 Resp 16 09/04/19 04:00 BP 100/50 09/04/19 04:00 Pulse Ox 96 09/04/19 04:00 Intake & Output 09/03/19 09/04/19 09/04/19 18:59 06:59 18:59 Intake Total 912 200 Output Total 300 Balance 912 -100 Weight 58.7 kg 61.4 kg Intake: Intake, IV Titration 72 Amount Diltiazem 125 mg In 72 Sodium Chloride 0.9% 100 ml @ 5 MG/HR 5 mls/hr IV .Q24H [facility] Rx#:[id number] Oral 840 200 Output: Urine 300 Other: # Voids 1 2 - Exam Gen: This is a thin cachectic appearing 84-year-old male. He is resting in bed and appears comfortable. HEENT: Head is atraumatic, normocephalic. Pupils equal, round. Sclerae is anicteric. NECK: Supple. No JVD. No lymphadenopathy. No thyromegaly. LUNGS: Diminished in the bases, prolonged expiratory phase. A few scattered wh eezes. No intercostal retractions. HEART: Irregularly irregular rate and rhythm. No murmur. ABDOMEN: Soft. Bowel sounds are present. No masses. No tenderness. EXTREMITIES: No pedal edema. No calf tenderness. NEUROLOGICAL: Patient is awake, alert and oriented x3. Cranial nerves 2 through 12 are grossly intact. - Labs CBC & Chem 7: 09/04/19 06:40 09/04/19 06:40 Labs: Abnormal Lab Results - Last 24 Hours (Table) 09/03/19 09/03/19 09/03/19 Range/Units 07:50 07:50 12:25 WBC 11.5 H (3.8-10.6) k/uL RBC 3.24 L (4.30-5.90) m/uL Hgb 8.9 L (13.0-17.5) gm/dL Hct 29.2 L (39.0-53.0) % MCHC 30.5 L (31.0-37.0) g/dL Neutrophils # 10.4 H (1.3-7.7) k/uL Lymphocytes # 0.9 L (1.0-4.8) k/uL Potassium 3.3 L (3.5-5.1) mmol/L BUN 22 H (9-20) mg/dL Glucose 151 H (74-99) mg/dL POC Glucose (mg/dL) 185 H (75-99) mg/dL Albumin 3.0 L (3.5-5.0) g/dL 09/03/19 09/03/19 09/04/19 Range/Units 16:57 20:10 06:10 WBC (3.8-10.6) k/uL RBC (4.30-5.90) m/uL Hgb (13.0-17.5) gm/dL Hct (39.0-53.0) % MCHC (31.0-37.0) g/dL Neutrophils # (1.3-7.7) k/uL Lymphocytes # (1.0-4.8) k/uL Potassium (3.5-5.1) mmol/L BUN (9-20) mg/dL Glucose (74-99) mg/dL POC Glucose (mg/dL) 220 H 180 H 178 H (75-99) mg/dL Albumin (3.5-5.0) g/dL 09/04/19 Range/Units 06:40 WBC 19.0 H (3.8-10.6) k/uL RBC 3.06 L (4.30-5.90) m/uL Hgb 7.9 L (13.0-17.5) gm/dL Hct 27.3 L (39.0-53.0) % MCHC 29.1 L (31.0-37.0) g/dL Neutrophils # 18.0 H (1.3-7.7) k/uL Lymphocytes # 0.6 L (1.0-4.8) k/uL Potassium (3.5-5.1) mmol/L BUN (9-20) mg/dL Glucose (74-99) mg/dL POC Glucose (mg/dL) (75-99) mg/dL Albumin (3.5-5.0) g/dL Microbiology - Last 24 Hours (Table) 09/02/19 16:00 Blood Culture - Preliminary Blood No Growth after 24 hours 09/02/19 16:15 Blood Culture - Preliminary Blood No Growth after 24 hours Assessment and Plan Assessment: Assessment and Plan Plan: 1. Possible pneumonia possible acute tracheobronchitis. Pulmonary consultation appreciated. Continue azithromycin, ceftriaxone, Pulmicort 0.5 mg twice daily, DuoNeb treatments every 4 hours as needed, Solu-Medrol 60 mg IV every 6 hours. 2. Acute exacerbation of COPD. Continue as in #1. 3. Paroxysmal atrial fibrillation presenting with RVR. Cardiology consult appreciated. Atenolol discontinued and patient started on Lopressor 25 mg twice daily. Patient is adamant he will not take anticoagulation. This was previously discussed with his associate agent insurance sales Dr. Cardona. 4. Acute on chronic diastolic heart failure. Patient received 1 dose of IV Lasix. 5. Pulmonary nodule. Recommend PET scan as an outpatient. 6. History of bladder cancer status post partial tumor resection. Possible metastatic disease with weight loss. 7. History of prostate cancer. 8. Tobacco use and dependence. Smoking cessation. 9. Hypertension. Continue lisinopril 2.5 mg at bedtime, Lopressor 10. Chronic anemia was likely secondary to underlying cancer. Continue to monitor. 11. Hypokalemia status post replacement. 12. Hyperglycemia secondary to steroids. No diagnosis of IBD's. Continue NovoLog scale. 13. GI prophylaxis. Protonix daily. 14. DVT prophylaxis. MARIO cruz and SCDs. 15. Confusion likely related to delirium. Monitor the patient very closely and try to reorient the patient and avoid antipsychotics if possible.
[2019-09-04 17:27] LABS: Glucose,Whole Blood 127 mg/dL (75-99)
[2019-09-04 20:45] LABS: Glucose,Whole Blood 235 mg/dL (75-99)
[2019-09-04] MEDS: LISINOPRIL 2.5 MG TAB PO SCH (21:34)
[2019-09-04] MEDS: MULTIVITAMINS, THERA 1 EACH TAB PO SCH (21:34)
[2019-09-04] MEDS: METOPROLOL TARTRATE 50 MG TAB PO SCH (21:34)
[2019-09-05] MEDS: IPRATROPIUM-ALBUTEROL 3 ML NEB INHALATION SCH ×6 (02:55→23:10)
[2019-09-05 06:06] LABS: Basophils % (A) 0 %; Eosinophils % (A) 0 %; HCT 27.1 % (39.0-53.0); HGB 8.2 gm/dL (13.0-17.5); Hypochromasia Marked; Lymphocytes # (A) 0.6 k/uL (1.0-4.8); Lymphocytes % (A) 3 %; MCH 27.1 pg (25.0-35.0); MCHC 30.2 g/dL (31.0-37.0); MCV 89.9 fL (80.0-100.0); Mean Platelet Volume 7.4; Monocytes # (A) 0.4 k/uL (0-1.0); Monocytes % (A) 2 %; Neutrophils # (A) 19.8 k/uL (1.3-7.7); Neutrophils % (A) 95 %; Platelet Count 266 k/uL (150-450); Poikilocytosis Slight; RBC 3.01 m/uL (4.30-5.90); RDW 14.8 % (11.5-15.5); WBC 20.9 k/uL (3.8-10.6)
[2019-09-05 06:13] LABS: Glucose,Whole Blood 116 mg/dL (75-99)
[2019-09-05 06:22] LABS: Albumin 2.7 g/dL (3.5-5.0); Calcium 9.1 mg/dL (8.4-10.2); Total Bilirubin 0.2 mg/dL (0.2-1.3); Total Protein 5.7 g/dL (6.3-8.2)
[2019-09-05] MEDS: PANTOPRAZOLE 40 MG TABLET PO SCH (06:38)
[2019-09-05] MEDS: methylPREDNISolone SOD SUCCI 125 MG/2 ML VIAL IV SCH ×2 (06:38)
[2019-09-05] MEDS: INSULIN ASPART (NovoLOG) 100 UNIT/ML VIAL SQ SCH ×4 (06:38→22:11)
[2019-09-05] MEDS: AZITHROMYCIN 500 MG TAB PO SCH (08:49)
[2019-09-05] MEDS: METOPROLOL TARTRATE 50 MG TAB PO SCH ×2 (08:49→22:10)
[2019-09-05] MEDS: ASPIRIN 81 MG PO SCH (08:50)
[2019-09-05] MEDS: BUDESONIDE 0.5 MG/2 ML NEBU INHALATION SCH ×2 (08:58→20:30)
--- NOTE | 2019-09-05 10:50 | P.PN ---
Subjective Progress Note Date: 09/05/19 This is an 84-year-old male patient of Dr. Call with past medical history significant for hypertension, hyperlipidemia, osteoarthritis, COPD, tobacco use and dependence, prostate cancer diagnosed approximately 18 years ago, bladder cancer with pathology positive for invasive high-grade pap illary urothelial carcinoma in November 2018. Patient chose to not undergo any further treatment including chemotherapy or radiation therapy. He is status post cystoscopy with partial removal of the bladder tumor. The patient does have history of atrial fibrillation had followed with Dr. Jeferson Cardona but he refused to be on any anticoagulation at that time and Dr. Brice was aware and it was decided he would be on aspirin only. He continues to state that he does not want to be on any anticoagulation. He does have mild bleeding from the bladder that has continued since bladder surgery. He states that he has had shortness of breath and a cough for couple months. He complains of increasing shortness of breath with minimal activity. Shortness of breath has progressively worsened over the last week. No fever or chills. No nausea or vomiting. He is getting around the home and driving but does little else. No blood in his stools. No nausea or vomiting but he has had weight loss and decreased appetite. Patient came into [facility] emergency center for evaluation. He was afebrile, blood pressure 90/50, pulse ox 89% on room air, heart rate 76. After nebulizer treatment his heart rate was in the 130s and 140s. WBC 13.8, hemoglobin 10, platelet count 270. Sodium 142, potassium 4.4, chloride 110, CO2 20, BUN 19 creatinine 1.07 blood sugar 111. Troponin negative. AST elevated at 62. ProBNP 2560. EKG was atrial fibrillation with a heart rate of 124. Chest x-ray reveals COPD with bilateral infiltrates and small effusion. 7 mm nodule in the right mid lung CAT scan suggested. Suspect soft tissue fold underlying the lower chest and left side rather than pneumothorax. CAT scan of the chest reveals asymmetrical small left pleural non-simple effusion or fluid collection with adjacent compressive atelectasis. Background mild to moderate emphysematous and proximal fibrotic changes with suspicious posterior left upper lung nodule worrisome for neoplasm. Advised PET scan follow-up. Repeat chest x-ray today reveals left pleural effusion and associated atelectasis. Emphysema. Interstitial lung disease. Coronary artery disease. Patient was admitted to the cardiac stepdown unit and consults placed with cardiology and pulmonary medicine. Patient's been started on azithromycin, Rocephin, IV Solu- Medrol, Cardizem drip. 09/04: Patient is sitting up in bed in no apparent distress, he appears to be quite confused yesterday according to nursing staff, he is feeling a bit better today denies any chest pain or shortness breath, he denies any abdominal pain, no nausea or vomiting and no apparent hematuria. 09/05: Patient is laying down in bed he appears okay he is asking to go home I we'll decrease his Solu-Medrol today hopefully we will discharge him home tomorrow morning. Review of Systems Constitutional: Reports fatigue, Reports poor appetite, Reports weakness, Reports weight loss, Denies chills, Denies fever Eyes: denies blurred vision, denies pain Ears, nose, mouth and throat: Denies headache, Denies sore throat, Denies vertigo Cardiovascular: Reports decreased exercise tolerance, Reports dyspnea on exertion, Reports shortness of breath, Denies chest pain, Denies palpitations, Denies syncope Respiratory: Reports dyspnea, Denies cough, Denies cough with sputum, Denies excessive sputum, Denies hemoptysis, Denies home oxygen, Denies wheezing Gastrointestinal: Reports loss of appetite, Denies abdominal pain, Denies constipation, Denies diarrhea, Denies melena, Denies nausea, Denies vomiting Genitourinary: Reports hematuria, Denies dysuria Musculoskeletal: Reports muscle weakness, Denies frequent falls, Denies myalgias Integumentary: Denies pruritus, Denies rash, Denies wounds Neurological: Denies change in mentation, Denies change in speech, Denies numbne ss, Denies seizures, Denies weakness Psychiatric: Denies anxiety, Denies depressio Objective - Vital Signs Vital signs: Vital Signs Temp 97 F L 09/05/19 04:00 Pulse 62 09/05/19 04:00 Resp 16 09/05/19 04:00 BP 124/54 09/05/19 04:00 Pulse Ox 98 09/05/19 04:00 Intake & Output 09/04/19 09/05/19 09/05/19 18:59 06:59 18:59 Intake Total 810 300 Output Total 400 300 Balance 410 0 Weight 61.3 kg Intake: IV 50 [id number] 1 gm In 50 Sodium Chloride 0.9% 50 ml @ 100 mls/hr IVPB Q24HR [facility] Rx#:[id number] Oral 760 300 Output: Urine 400 300 Other: Voiding Method Toilet # Voids 1 - Exam Gen: This is a thin cachectic appearing 84-year-old male. He is res ting in bed and appears comfortable. HEENT: Head is atraumatic, normocephalic. Pupils equal, round. Sclerae is anicteric. NECK: Supple. No JVD. No lymphadenopathy. No thyromegaly. LUNGS: Diminished in the bases, prolonged expiratory phase. A few scattered wheezes. No intercostal retractions. HEART: Irregularly irregular rate and rhythm. No murmur. ABDOMEN: Soft. Bowel sounds are present. No masses. No tenderness. EXTREMITIES: No pedal edema. No calf tenderness. NEUROLOGICAL: Patient is awake, alert and oriented x3. Cranial nerves 2 through 12 are grossly intact. - Labs CBC & Chem 7: 09/05/19 05:48 09/05/19 05:48 Labs: Abnormal Lab Results - Last 24 Hours (Table) 09/04/19 09/04/19 09/04/19 Range/Units 06:40 06:40 11:51 WBC 19.0 H (3.8-10.6) k/uL RBC 3.06 L (4.30-5.90) m/uL Hgb 7.9 L (13.0-17.5) gm/dL Hct 27.3 L (39.0-53.0) % MCHC 29.1 L (31.0-37.0) g/dL Neutrophils # 18.0 H (1.3-7.7) k/uL Lymphocytes # 0.6 L (1.0-4.8) k/uL Chloride 109 H (98-107) mmol/L BUN 37 H (9-20) mg/dL Glucose 143 H (74-99) mg/dL POC Glucose (mg/dL) 208 H (75-99) mg/dL Total Protein 5.9 L (6.3-8.2) g/dL Albumin 2.7 L (3.5-5.0) g/dL 09/04/19 09/04/19 09/05/19 Range/Units 17:24 20:43 05:48 WBC 20.9 H (3.8-10.6) k/uL RBC 3.01 L (4.30-5.90) m/uL Hgb 8.2 L (13.0-17.5) gm/dL Hct 27.1 L (39.0-53.0) % MCHC 30.2 L (31.0-37.0) g/dL Neutrophils # 19.8 H (1.3-7.7) k/uL Lymphocytes # 0.6 L (1.0-4.8) k/uL Chloride (98-107) mmol/L BUN (9-20) mg/dL Glucose (74-99) mg/dL POC Glucose (mg/dL) 127 H 235 H (75-99) mg/dL Total Protein (6.3-8.2) g/dL Albumin (3.5-5.0) g/dL 09/05/19 09/05/19 Range/Units 05:48 06:12 WBC (3.8-10.6) k/uL RBC (4.30-5.90) m/uL Hgb (13.0-17.5) gm/dL Hct (39.0-53.0) % MCHC (31.0-37.0) g/dL Neutrophils # (1.3-7.7) k/uL Lymphocytes # (1.0-4.8) k/uL Chloride 112 H (98-107) mmol/L BUN 41 H (9-20) mg/dL Glucose 112 H (74-99) mg/dL POC Glucose (mg/dL) 116 H (75-99) mg/dL Total Protein 5.7 L (6.3-8.2) g/dL Albumin 2.7 L (3.5-5.0) g/dL Microbiology - Last 24 Hours (Table) 09/02/19 16:15 Blood Culture - Preliminary Blood No Growth after 48 hours 09/02/19 16:00 Blood Culture - Preliminary Blood No Growth after 48 hours Assessment and Plan Assessment: Assessment and Plan Plan: 1. Possible pneumonia possible acute tracheobronchitis. Pulmonary consultation appreciated. Continue azithromycin, ceftriaxone, Pulmicort 0.5 mg twice daily, DuoNeb treatments every 4 hours as needed, Solu-Medrol 40 mg IV every 8 hours. 2. Acute exacerbation of COPD. Continue as in #1. 3. Paroxysmal atrial fibrillation presenting with RVR. Cardiology consult appreciated. Atenolol discontinued and patient started on Lopressor 25 mg twice daily. Patient is adamant he will not take anticoagulation. This was previously discussed with his route manager Dr. Cardona. 4. Acute on chronic diastolic heart failure. Patient received 1 dose of IV Lasix. 5. Pulmonary nodule. Recommend PET scan as an outpatient. 6. History of bladder cancer status post partial tumor resection. Possible metastatic disease with weight loss. 7. History of prostate cancer. 8. Tobacco use and dependence. Smoking cessation. 9. Hypertension. Continue lisinopril 2.5 mg at bedtime, Lopressor 10. Chronic anemia was likely secondary to underlying cancer. Continue to monitor. 11. Hypokalemia status post replacement. 12. Hyperglycemia secondary to steroids. No diagnosis of IBD's. Continue NovoLog scale. 13. GI prophylaxis. Protonix daily. 14. DVT prophylaxis. MARIO cruz and SCDs. 15. Confusion likely related to delirium. Monitor the patient very closely and try to reorient the patient and avoid antipsychotics if possible. 16. Home tomorrow morning.
[2019-09-05 11:59] LABS: Glucose,Whole Blood 329 mg/dL (75-99)
[2019-09-05] MEDS ORDERED: INSULIN ASPART (NovoLOG) 100 UNIT/ML VIAL SQ ONE (12:16)
[2019-09-05 12:43] LABS: Glucose,Whole Blood 252 mg/dL (75-99)
--- NOTE | 2019-09-05 15:18 | P.PN ---
Subjective Progress Note Date: 09/05/19 This is an 84-year-old gentleman who follows regularly with Dr. Cardona in the office, he has a history of bladder cancer, hypertension, hyperlipidemia, nicotine dependence, COPD, presented to the hospital with 2 to three-week duration of progressively worsening shortness of breath. Patient does state that he has a mild cough but it has been nonproductive at home. Shortness of breath seems to be worse when he exerts himself. EKG on presentation here showed atrial fibrillation with a rapid ventricular response, occasional PVCs. Incomplete right bundle branch block pattern. According to Dr. Cardona's office note, the patient does have a history of atrial fibrillation in the past. It does not appear that the patient had been initiated on anticoagulation. Chest x-ray on presentation here showed COPD with bilateral infiltrate and small effusion. 7 mm nodule in the right midlung computed tomography scan is recommended. Suspect a soft tissue fold-over overlying the left lower chest r ather than small pneumothorax. Blood pressure this morning 97/50 with a heart rate in the 90s. Patient continues to be in atrial fibrillation. White blood cell count on admission 13.8, 11.5 this morning, hemoglobin 10 on admission 8.9 this morning, platelet count 269. Sodium 145, potassium 3.3, BUN 22 and creatinine 1.0. Magnesium level 2.0. Troponin 0.012, BNP level 2560. Echocardiogram revealed LV function of 50-55% with an enlarged right ventricle. No significant valvular abnormalities. 09/04/19 Patient states he overall feels well. He states he did have some shortness of breath when he was up ambulating in the halls.vital signs show blood pressure in the low 100s. Heart rates in the 80s to 120s. WBC count 19, hemoglobin 7.9, hematocrit 27.3, platelet 270, sodium 145, potassium 3.8, BUN 37, creatinine 1.13. 09/05/19 Patient is very eager to be discharged from the hospital. He states he does not feel unwell. He denies any chest pain, chest pressure, shortness of breath, dizziness, or lightheadedness when up ambulating in the halls. White count continues to climb at 20.9, hemoglobin 8.2, hematocrit 27.1, platelet 266, sodium 144, potassium 4.0, BUN 41, creatinine 1.24. Blood pressures continued to be reasonably well controlled. Heart rates in the 60s at rest and up to 120 when ambulating. He is 96% on room air. Objective - Vital Signs Vital signs: Vital Signs Temp 97.4 F L 09/05/19 12:00 Pulse 61 09/05/19 12:00 Resp 20 09/05/19 12:00 BP 102/54 09/05/19 12:00 Pulse Ox 96 09/05/19 12:00 Intake & Output 09/04/19 09/05/19 09/05/19 18:59 06:59 18:59 Intake Total 810 300 180 Output Total 400 300 Balance 410 0 180 Weight 61.3 kg Intake: IV 50 cefTRIAXone 1 gm In 50 Sodium Chloride 0.9% 50 ml @ 100 mls/hr IVPB Q24HR [facility] Rx#:[id number] Oral 760 300 180 Output: Urine 400 300 Other: Voiding Method Toilet Toilet Diaper Incontinent # Voids 1 - Exam GENERAL: Well-appearing, well-nourished and in no acute distress. NECK: Supple without JVD or thyromegaly. LUNGS: Breath sounds diminished auscultation bilaterally. Respiration equal and unlabored. No wheezes, rales or rhonchi. HEART: Irregular rate and rhythm without murmurs, rubs or gallops. S1 and S2 heard. EXTREMITIES: Normal range of motion, no edema. No clubbing or cyanosis. Peripheral pulses intact and strong. ambulates with a cane - Labs CBC & Chem 7: 09/05/19 05:48 09/05/19 05:48 Labs: Abnormal Lab Results - Last 24 Hours (Table) 09/04/19 09/04/19 09/05/19 Range/Units 17:24 20:43 05:48 WBC 20.9 H (3.8-10.6) k/uL RBC 3.01 L (4.30-5.90) m/uL Hgb 8.2 L (13.0-17.5) gm/dL Hct 27.1 L (39.0-53.0) % MCHC 30.2 L (31.0-37.0) g/dL Neutrophils # 19.8 H (1.3-7.7) k/uL Lymphocytes # 0.6 L (1.0-4.8) k/uL Chloride (98-107) mmol/L BUN (9-20) mg/dL Glucose (74-99) mg/dL POC Glucose (mg/dL) 127 H 235 H (75-99) mg/dL Total Protein (6.3-8.2) g/dL Albumin (3.5-5.0) g/dL 09/05/19 09/05/19 09/05/19 Range/Units 05:48 06:12 11:54 WBC (3.8-10.6) k/uL RBC (4.30-5.90) m/uL Hgb (13.0-17.5) gm/dL Hct (39.0-53.0) % MCHC (31.0-37.0) g/dL Neutrophils # (1.3-7.7) k/uL Lymphocytes # (1.0-4.8) k/uL Chloride 112 H (98-107) mmol/L BUN 41 H (9-20) mg/dL Glucose 112 H (74-99) mg/dL POC Glucose (mg/dL) 116 H 329 H (75-99) mg/dL Total Protein 5.7 L (6.3-8.2) g/dL Albumin 2.7 L (3.5-5.0) g/dL 09/05/19 Range/Units 12:41 WBC (3.8-10.6) k/uL RBC (4.30-5.90) m/uL Hgb (13.0-17.5) gm/dL Hct (39.0-53.0) % MCHC (31.0-37.0) g/dL Neutrophils # (1.3-7.7) k/uL Lymphocytes # (1.0-4.8) k/uL Chloride (98-107) mmol/L BUN (9-20) mg/dL Glucose (74-99) mg/dL POC Glucose (mg/dL) 252 H (75-99) mg/dL Total Protein (6.3-8.2) g/dL Albumin (3.5-5.0) g/dL Microbiology - Last 24 Hours (Table) 09/02/19 16:15 Blood Culture - Preliminary Blood No Growth after 48 hours 09/02/19 16:00 Blood Culture - Preliminary Blood No Growth after 48 hours Assessment and Plan Assessment: #1 diastolic heart failure, acute on chronic. #2 atrial fibrillation with moderately rapid ventricular response, started on Eliquis #3 hyperlipidemia #4 nicotine dependence #5 hypertension #6 hypertension #7 anemia, unspecified Plan: Continue current medication regimen. Patient is cleared to be discharged from the cardiac standpoint within the next 24-48 hours. Recommend follow-up with baseball inspector and repairer in office for tachycardia.
[2019-09-05] MEDS: methylPREDNISolone SOD SUCCI 40 MG/ML 1 ML VIAL IV SCH ×2 (16:16→22:11)
[2019-09-05 17:58] LABS: Glucose,Whole Blood 74 mg/dL (75-99)
[2019-09-05 20:49] LABS: Glucose,Whole Blood 160 mg/dL (75-99)
[2019-09-05] MEDS: MULTIVITAMINS, THERA 1 EACH TAB PO SCH (22:10)
[2019-09-05] MEDS: LISINOPRIL 2.5 MG TAB PO SCH (22:10)
[2019-09-06] MEDS: IPRATROPIUM-ALBUTEROL 3 ML NEB INHALATION SCH ×6 (03:03→23:57)
[2019-09-06 06:22] LABS: Glucose,Whole Blood 117 mg/dL (75-99)
[2019-09-06] MEDS: PANTOPRAZOLE 40 MG TABLET PO SCH (06:49)
[2019-09-06] MEDS: BUDESONIDE 0.5 MG/2 ML NEBU INHALATION SCH ×2 (08:28→21:03)
[2019-09-06] MEDS: INSULIN ASPART (NovoLOG) 100 UNIT/ML VIAL SQ SCH ×4 (08:30→22:18)
[2019-09-06] MEDS: ASPIRIN 81 MG PO SCH (08:34)
[2019-09-06] MEDS: AZITHROMYCIN 500 MG TAB PO SCH (08:34)
[2019-09-06] MEDS: methylPREDNISolone SOD SUCCI 40 MG/ML 1 ML VIAL IV SCH (08:34)
[2019-09-06] MEDS: METOPROLOL TARTRATE 50 MG TAB PO SCH ×2 (12:10→22:18)
[2019-09-06 12:16] LABS: Glucose,Whole Blood 125 mg/dL (75-99)
--- NOTE | 2019-09-06 12:24 | P.PN ---
Subjective Progress Note Date: 09/06/19 This is an 84-year-old gentleman who follows regularly with Dr. Cardona in the office, he has a history of bladder cancer, hypertension, hyperlipidemia, nicotine dependence, COPD, presented to the hospital with 2 to three-week duration of progressively worsening shortness of breath. Patient does state that he has a mild cough but it has been nonproductive at home. Shortness of breath seems to be worse when he exerts himself. EKG on presentation here showed atrial fibrillation with a rapid ventricular response, occasional PVCs. Incomplete right bundle branch block pattern. According to Dr. Cardona's office note, the patient does have a history of atrial fibrillation in the past. It does not appear that the patient had been initiated on anticoagulation. Chest x-ray on presentation here showed COPD with bilateral infiltrate and small effusion. 7 mm nodule in the right midlung computed tomography scan is recommended. Suspect a soft tissue fold-over overlying the left lower chest r ather than small pneumothorax. Blood pressure this morning 97/50 with a heart rate in the 90s. Patient continues to be in atrial fibrillation. White blood cell count on admission 13.8, 11.5 this morning, hemoglobin 10 on admission 8.9 this morning, platelet count 269. Sodium 145, potassium 3.3, BUN 22 and creatinine 1.0. Magnesium level 2.0. Troponin 0.012, BNP level 2560. 09/06/2019 Patient seen and examined this morning, overall doing better, blood pressure this morning 94/60 with a heart rate of 58. No lab data today. Objective - Vital Signs Vital signs: Vital Signs Temp 97.5 F L 09/06/19 11:45 Pulse 67 09/06/19 11:45 Resp 20 09/06/19 11:45 BP 119/62 09/06/19 11:45 Pulse Ox 96 09/06/19 11:45 Intake & Output 09/05/19 09/06/19 09/06/19 18:59 06:59 18:59 Intake Total 640 236 Output Total 600 Balance 640 -600 236 Weight 62.4 kg Intake: Oral 640 236 Output: Urine 600 Other: Voiding Method Toilet Toilet Toilet Diaper Diaper Diaper Incontinent Incontinent Incontinent # Voids 3 1 1 # Bowel Movements 1 - Exam PHYSICAL EXAMINATION: GENERAL: 84-year-old gentleman in no acute stress at the time of my examination HEENT: Head is atraumatic, normocephalic. Pupils equal, round. Sclera anicteric. Conjunctiva are clear. Mucous membranes of the mouth are moist. Neck is supple. There is no elevated jugular venous pressure. No carotid bruit is heard. HEART EXAMINATION: S1 and S2 irregularly irregular CHEST EXAMINATION: Lungs reveal improvement in air entry to the bases ABDOMEN: Soft, nontender. Bowel sounds are heard. No organomegaly noted. EXTREMITIES: 2+ peripheral pulses with trace edema to the right lower extremity no edema to the left . NEUROLOGIC patient is awake, alert and oriented 3 . - Labs CBC & Chem 7: 09/05/19 05:48 09/05/19 05:48 Labs: Abnormal Lab Results - Last 24 Hours (Table) 09/05/19 09/05/19 09/05/19 Range/Units 12:41 17:55 20:47 POC Glucose (mg/dL) 252 H 74 L 160 H (75-99) mg/dL 09/06/19 09/06/19 Range/Units 06:21 12:12 POC Glucose (mg/dL) 117 H 125 H (75-99) mg/dL Microbiology - Last 24 Hours (Table) 09/02/19 16:00 Blood Culture - Preliminary Blood No Growth after 72 hours 09/02/19 16:15 Blood Culture - Preliminary Blood No Growth after 72 hours Assessment and Plan Plan: Assessment and plan #1 symptoms of progressively worsening shortness of breath with evidence of mild congestive cardiac failure, most recent echo performed in the office showed a normal LV function, diastolic acute on chronic. Possible acute tracheobronchitis. #2 atrial fibrillation with moderately rapid ventricular response, patient has documented paroxysmal atrial fibrillation in the past, not currently on anticoagulation #3 hyperlipidemia #4 nicotine dependence #5 hypertension #6 hypertension #7 history of bladder cancer #87 mm nodule noticed on chest x-ray Plan From cardiology's perspective, we'll recommend to continue this patient on his current medications. He may be able to be discharged home once cleared by primary. DNP note has been reviewed, I agree with a documented findings and plan of care. Patient was seen and examined.
[2019-09-06] MEDS ORDERED: SODIUM CHLORIDE 0.9% 1,000 ML IV SCH (12:45)
[2019-09-06 14:40] VITALS: BMI 19.7
--- NOTE | 2019-09-06 16:00 | P.PN ---
Subjective Progress Note Date: 09/06/19 This is an 84-year-old male patient of Dr. Call with past medical history significant for hypertension, hyperlipidemia, osteoarthritis, COPD, tobacco use and dependence, prostate cancer diagnosed approximately 18 years ago, bladder cancer with pathology positive for invasive high-grade pap illary urothelial carcinoma in November 2018. Patient chose to not undergo any further treatment including chemotherapy or radiation therapy. He is status post cystoscopy with partial removal of the bladder tumor. The patient does have history of atrial fibrillation had followed with Dr. Jeferson Cardona but he refused to be on any anticoagulation at that time and Dr. Brice was aware and it was decided he would be on aspirin only. He continues to state that he does not want to be on any anticoagulation. He does have mild bleeding from the bladder that has continued since bladder surgery. He states that he has had shortness of breath and a cough for couple months. He complains of increasing shortness of breath with minimal activity. Shortness of breath has progressively worsened over the last week. No fever or chills. No nausea or vomiting. He is getting around the home and driving but does little else. No blood in his stools. No nausea or vomiting but he has had weight loss and decreased appetite. Patient came into [facility] emergency center for evaluation. He was afebrile, blood pressure 90/50, pulse ox 89% on room air, heart rate 76. After nebulizer treatment his heart rate was in the 130s and 140s. WBC 13.8, hemoglobin 10, platelet count 270. Sodium 142, potassium 4.4, chloride 110, CO2 20, BUN 19 creatinine 1.07 blood sugar 111. Troponin negative. AST elevated at 62. ProBNP 2560. EKG was atrial fibrillation with a heart rate of 124. Chest x-ray reveals COPD with bilateral infiltrates and small effusion. 7 mm nodule in the right mid lung CAT scan suggested. Suspect soft tissue fold underlying the lower chest and left side rather than pneumothorax. CAT scan of the chest reveals asymmetrical small left pleural non-simple effusion or fluid collection with adjacent compressive atelectasis. Background mild to moderate emphysematous and proximal fibrotic changes with suspicious posterior left upper lung nodule worrisome for neoplasm. Advised PET scan follow-up. Repeat chest x-ray today reveals left pleural effusion and associated atelectasis. Emphysema. Interstitial lung disease. Coronary artery disease. Patient was admitted to the cardiac stepdown unit and consults placed with cardiology and pulmonary medicine. Patient's been started on azithromycin, Rocephin, IV Solu- Medrol, Cardizem drip. 09/04: Patient is sitting up in bed in no apparent distress, he appears to be quite confused yesterday according to nursing staff, he is feeling a bit better today denies any chest pain or shortness breath, he denies any abdominal pain, no nausea or vomiting and no apparent hematuria. 09/05: Patient is laying down in bed he appears okay he is asking to go home I we'll decrease his Solu-Medrol today hopefully we will discharge him home tomorrow morning. 09/06: Patient had episode of weakness possible hypotensive with possible vasovagal episode. Patient was up to the bathroom and had a bowel movement. He became dizzy walking back to his bed. Blood pressure once obtained was 93/57. Metoprolol was held this morning. Solu-Medrol will be decreased every 12 hours. Patient's states that he will be going to either [facility] or [facility]. We'll plan to monitor overnight and make arranges for discharge to rehab [facility]. Patient states that he is feeling much better and has been up to the bathroom since his episode this morning. Patient will be transferred to the [facility] floor. Objective - Vital Signs Vital signs: Vital Signs Temp 97.5 F L 09/06/19 11:45 Pulse 67 09/06/19 11:45 Resp 20 09/06/19 11:45 BP 119/62 09/06/19 11:45 Pulse Ox 96 09/06/19 11:45 Intake & Output 09/05/19 09/06/19 09/06/19 18:59 06:59 18:59 Intake Total 640 236 Output Total 600 Balance 640 -600 236 Weight 62.4 kg Intake: Oral 640 236 Output: Urine 600 Other: Voiding Method Toilet Toilet Toilet Diaper Diaper Diaper Incontinent Incontinent Incontinent # Voids 3 1 1 # Bowel Movements 1 - Exam Review of Systems Constitutional: Reports fatigue, Reports poor appetite, Reports weakness, Reports weight loss, Denies chills, Denies fever, Eyes: denies blurred vision, denies pain Ears, nose, mouth and throat: Denies headache, Denies sore throat, reports ligia tigo Cardiovascular: Reports decreased exercise tolerance, Reports dyspnea on exertion, Reports shortness of breath, Denies chest pain, Denies palpitations, Denies syncope Respiratory: Reports dyspnea, Denies cough, Denies cough with sputum, Denies e xcessive sputum, Denies hemoptysis, Denies home oxygen, Denies wheezing Gastrointestinal: Reports loss of appetite, Denies abdominal pain, Denies constipation, Denies diarrhea, Denies melena, Denies nausea, Denies vomiting Genitourinary: Reports hematuria, Denies dysuria Musculoskeletal: Reports muscle weakness, Denies frequent falls, Denies myalgias Integumentary: Denies pruritus, Denies rash, Denies wounds Neurological: Denies change in mentation, Denies change in speech, Denies numbness, Denies seizures, Denies weakness Psychiatric: Denies anxiety, Denies depressio Gen: This is a thin cachectic appearing 84-year-old male. He is resting in bed and appears comfortable and in no acute distress. is at bedside.. HEENT: Head is atraumatic, normocephalic. Pupils equal, round. Sclerae is anicteric. NECK: Supple. No JVD. No lymphadenopathy. No thyromegaly. LUNGS: Diminished in the bases, prolonged expiratory phase. A few scattered wheezes. No intercostal retractions. HEART: Irregularly irregular rate and rhythm. No murmur. ABDOMEN: Soft. Bowel sounds are present. No masses. No tenderness. EXTREMITIES: No pedal edema. No calf tenderness. NEUROLOGICAL: Patient is awake, alert and oriented x3. Cranial nerves 2 through 12 are grossly intact. - Labs CBC & Chem 7: 09/05/19 05:48 09/05/19 05:48 Labs: Abnormal Lab Results - Last 24 Hours (Table) 09/05/19 09/05/19 09/06/19 Range/Units 17:55 20:47 06:21 POC Glucose (mg/dL) 74 L 160 H 117 H (75-99) mg/dL 09/06/19 Range/Units 12:12 POC Glucose (mg/dL) 125 H (75-99) mg/dL Microbiology - Last 24 Hours (Table) 09/02/19 16:00 Blood Culture - Preliminary Blood No Growth after 72 hours 09/02/19 16:15 Blood Culture - Preliminary Blood No Growth after 72 hours Assessment and Plan Plan: 1. Possible pneumonia possible acute tracheobronchitis. Pulmonary consultation appreciated. Continue azithromycin, ceftriaxone, Pulmicort 0.5 mg twice daily, DuoNeb treatments every 4 hours as needed, Solu-Medrol 40 mg IV every 8 hours will be changed to every 12 hours and start prednisone in the morning. 2. Acute exacerbation of COPD. Continue as in #1. 3. Paroxysmal atrial fibrillation presenting with RVR. Cardiology consult appreciated. Atenolol discontinued and patient started on Lopressor increased to 50 mg twice daily. Patient is adamant he will not take anticoagulation. This was previously discussed with his watch hairspring assembler Dr. Cardona. 4. Acute on chronic diastolic heart failure. Patient received 1 dose of IV Lasix. 5. Pulmonary nodule. Recommend PET scan as an outpatient. 6. History of bladder cancer status post partial tumor resection. Possible metastatic disease with weight loss. 7. History of prostate cancer. 8. Tobacco use and dependence. Smoking cessation. 9. Hypertension. Continue lisinopril 2.5 mg at bedtime, Lopressor 10. Chronic anemia was likely secondary to underlying cancer. Continue to monitor. 11. Hypokalemia status post replacement. 12. Hyperglycemia secondary to steroids. No diagnosis of IBD's. Continue NovoLog scale. 13. GI prophylaxis. Protonix daily. 14. DVT prophylaxis. MARIO hose and SCDs. 15. Confusion likely related to acute delirium. Monitor the patient very closely and try to reorient the patient and avoid antipsychotics if possible. Seems to be resolved. Discharge plan: [facility] or [facility] tomorrow. Impression and plan of care have been directed as dictated by the signing physician. Judy Saleh nurse practitioner acting as scribe for signing physician.
[2019-09-06 17:03] LABS: Glucose,Whole Blood 141 mg/dL (75-99)
[2019-09-06] MEDS ORDERED: methylPREDNISolone SOD SUCCI 40 MG/ML 1 ML VIAL IV SCH (21:00)
[2019-09-06 21:05] LABS: Glucose,Whole Blood 165 mg/dL (75-99)
[2019-09-06] MEDS: LISINOPRIL 2.5 MG TAB PO SCH (22:18)
[2019-09-06] MEDS: MULTIVITAMINS, THERA 1 EACH TAB PO SCH (22:18)
[2019-09-07] MEDS: IPRATROPIUM-ALBUTEROL 3 ML NEB INHALATION SCH ×3 (02:35→13:16)
[2019-09-07 06:21] LABS: Glucose,Whole Blood 101 mg/dL (75-99)
[2019-09-07] MEDS: PANTOPRAZOLE 40 MG TABLET PO SCH (06:45)
[2019-09-07] MEDS: INSULIN ASPART (NovoLOG) 100 UNIT/ML VIAL SQ SCH ×2 (08:34→12:50)
[2019-09-07] MEDS ORDERED: predniSONE 20 MG TAB PO SCH (09:00)
[2019-09-07] MEDS: METOPROLOL TARTRATE 50 MG TAB PO SCH (09:16)
[2019-09-07] MEDS: AZITHROMYCIN 500 MG TAB PO SCH (09:16)
[2019-09-07] MEDS: ASPIRIN 81 MG PO SCH (09:16)
[2019-09-07] MEDS: BUDESONIDE 0.5 MG/2 ML NEBU INHALATION SCH (09:25)
--- NOTE | 2019-09-07 12:11 | P.DS ---
Providers Date of admission: 09/02/19 15:55 Expected date of discharge: 09/07/19 Attending physician: Hali Santillan Consults: 09/02/19 15:55 Consult Physician Routine Consulting Provider: Leland Gaines Consult Reason/Comments: Pneumonia, bronchospasm Do you want consulting provider notified?: Yes 09/02/19 15:57 Consult Physician Routine Consulting Provider: Malcolm Unger Consult Reason/Comments: Rapid atrial fibrillation, CHF Do you want consulting provider notified?: Yes [facility]: This is an 84-year-old male patient of Dr. 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 Patient chose to not undergo any further treatment including chemotherapy or radiation therapy. He is status post cystoscopy with partial removal of the bladder tumor. The patient does have history of atrial fibrillation had followed with Dr. Jeferson Cardona but he refused to be on any anticoagulation at that time and Dr. Brice was aware and it was decided he would be on aspirin only. He continues to state that he does not want to be on any anticoagulation. He does have mild bleeding from the bladder that has continued since bladder surgery. He states that he has had shortness of breath and a cough for couple months. He complains of increasing shortness of breath with minimal activity. Shortness of breath has progressively worsened over the last week. No fever or chills. No nausea or vomiting. He is getting around the home and driving but does little else. No blood in his stools. No nausea or vomiting but he has had weight loss and decreased appetite. Patient came into [facility] emergency center for evaluation. He was afebrile, blood pressure 90/50, pulse ox 89% on room air, heart rate 76. After nebulizer treatment his heart rate was in the 130s and 140s. WBC 13.8, hemoglobin 10, platelet count 270. Sodium 142, potassium 4.4, chloride 110, CO2 20, BUN 19 creatinine 1.07 blood sugar 111. Troponin negative. AST elevated at 62. ProBNP 2560. EKG was atrial fibrillation with a heart rate of 124. Chest x-ray reveals COPD with bilateral infiltrates and small effusion. 7 mm nodule in the right mid lung CAT scan suggested. Suspect soft tissue fold underlying the lower chest and left side rather than pneumothorax. CAT scan of the chest reveals asymmetrical small left pleural non-simple effusion or fluid collection with adjacent compressive atelectasis. Background mild to moderate emphysematous and proximal fibrotic changes with suspicious posterior left upper lung nodule worrisome for neoplasm. Advised PET scan follow-up. Repeat chest x-ray today reveals left pleural effusion and associated atelectasis. Emphysema. Interstitial lung disease. Coronary artery disease. Patient was admitted to the cardiac stepdown unit and consults placed with cardiology and pulmonary medicine. Patient's been started on azithromycin, Rocephin, IV Solu- Medrol, Cardizem drip. 09/04: Patient is sitting up in bed in no apparent distress, he appears to be quite confused yesterday according to nursing staff, he is feeling a bit better today denies any chest pain or shortness breath, he denies any abdominal pain, no nausea or vomiting and no apparent hematuria. 09/05: Patient is laying down in bed he appears okay he is asking to go home I we'll decrease his Solu-Medrol today hopefully we will discharge him home tomorrow morning. 09/06: Patient had episode of weakness possible hypotensive with possible vasovagal episode. Patient was up to the bathroom and had a bowel movement. He became dizzy walking back to his bed. Blood pressure once obtained was 93/57. Metoprolol was held this morning. Solu-Medrol will be decreased every 12 hours. Patient's states that he will be going to either [facility] or [facility]. We'll plan to monitor overnight and make arranges for discharge to rehab tomorrow. Patient states that he is feeling much better and has been up to the bathroom since his episode this morning. Patient will be transferred to the [facility] floor. 09/07: Patient and his are agreeable for discharge to [facility]. Patient continues to have blood in his urine and also states frequent bowel movements. He did not have much appetite this morning and did not eat breakfast. We'll plan for discharge to [facility] under the care of Dr. Holm. Patient will be discharged in stable condition. Discharge diagnoses: 1. Possible pneumonia possible acute tracheobronchitis. 2. Acute exacerbation of COPD. 3. Paroxysmal atrial fibrillation presenting with RVR. 4. Acute on chronic diastolic heart failure. 5. Pulmonary nodule. 6. History of bladder cancer status post partial tumor resection. 7. History of prostate cancer. 8. Tobacco use and dependence. 9. Hypertension. 10. Chronic anemia was likely secondary to underlying cancer. 11. Hypokalemia status post replacement. 12. Hyperglycemia secondary to steroids. 13. Acute delirium resolved. Discharge plan: [facility] under the care of Dr Holm. Impression and plan of care have been directed as dictated by the signing physician. Judy Saleh nurse practitioner acting as scribe for signing physician. Patient Condition at Discharge: Good Plan - Discharge Summary Discharge Rx Participant: No New Discharge Prescriptions: New Ipratropium-Albuterol Nebulize [Duoneb 0.5 mg-3 mg/3 ml Soln] 3 ml INHALATION RT-Q6H ampul.neb Metoprolol Tartrate [Lopressor] 50 mg PO BID tab predniSONE 0 mg PO DIRECTED #30 tab Pantoprazole [Protonix] 40 mg PO AC-BRKFST tablet. Budesonide [Pulmicort] 0.5 mg INHALATION RT-BID nebu Mirtazapine [Remeron] 7.5 mg PO HS #30 tab Continue Multivitamins, Thera [Multivitamin (formulary)] 1 tab PO HS Lisinopril [Zestril] 2.5 mg PO HS Discontinued Aspirin [Adult Low Dose Aspirin EC] 81 mg PO HS Atenolol [Tenormin] 25 mg PO HS Discharge Medication List Lisinopril [Zestril] 2.5 mg PO HS 12/03/18 [History] Multivitamins, Thera [Multivitamin (formulary)] 1 tab PO HS 12/03/18 [History] Budesonide [Pulmicort] 0.5 mg INHALATION RT-BID nebu 09/07/19 [Rx] Ipratropium-Albuterol Nebulize [Duoneb 0.5 mg-3 mg/3 ml Soln] 3 ml INHALATION RT-Q6H ampul.neb 09/07/19 [Rx] Metoprolol Tartrate [Lopressor] 50 mg PO BID tab 09/07/19 [Rx] Mirtazapine [Remeron] 7.5 mg PO HS #30 tab 09/07/19 [Rx] Pantoprazole [Protonix] 40 mg PO AC-BRKFST tablet. 09/07/19 [Rx] predniSONE 0 mg PO DIRECTED #30 tab 09/07/19 [Rx] Follow up Appointment(s)/Referral(s): Pacheco Cardona MD [STAFF PHYSICIAN] - 09/17/19 2:15 pm Zuhair Call DO [Primary Care Provider] - 1 Week (after discharge from [facility]) Patient Instructions/Handouts: How to Stop Smoking (DC) Discharge Disposition: TRANSFER TO SNF/ECF
[2019-09-07] MEDS ORDERED: HYDROcodone/APAP 5-325MG 1 EACH TAB PO PRN (12:23)
[2019-09-07 12:32] LABS: Glucose,Whole Blood 83 mg/dL (75-99)
[2019-09-07 14:48] VITALS: BP 130/67; PULSE 67; RESP 20; TEMP 97.5
--- NOTE | 2019-09-07 15:44 | P.PN ---
Subjective Progress Note Date: 09/07/19 This is an 84-year-old gentleman who follows regularly with Dr. Cardona in the office, he has a history of bladder cancer, hypertension, hyperlipidemia, nicotine dependence, COPD, presented to the hospital with 2 to three-week duration of progressively worsening shortness of breath. Patient does state that he has a mild cough but it has been nonproductive at home. Shortness of breath seems to be worse when he exerts himself. EKG on presentation here showed atrial fibrillation with a rapid ventricular response, occasional PVCs. Incomplete right bundle branch block pattern. According to Dr. Cardona's office note, the patient does have a history of atrial fibrillation in the past. It does not appear that the patient had been initiated on anticoagulation. Chest x-ray on presentation here showed COPD with bilateral infiltrate and small effusion. 7 mm nodule in the right midlung computed tomography scan is recommended. Suspect a soft tissue fold-over overlying the left lower chest r ather than small pneumothorax. Blood pressure this morning 97/50 with a heart rate in the 90s. Patient continues to be in atrial fibrillation. White blood cell count on admission 13.8, 11.5 this morning, hemoglobin 10 on admission 8.9 this morning, platelet count 269. Sodium 145, potassium 3.3, BUN 22 and creatinine 1.0. Magnesium level 2.0. Troponin 0.012, BNP level 2560. 09/06/2019 Patient seen and examined this morning, overall doing better, blood pressure this morning 94/60 with a heart rate of 58. No lab data today. 09/07/2019 Patient was seen and examined this morning, hemodynamically stable. Blood pressure 130/60 with a heart rate in the 60s, 99% on room air. Objective - Vital Signs Vital signs: Vital Signs Temp 97.5 F L 09/07/19 12:10 Pulse 78 09/07/19 13:27 Resp 20 09/07/19 12:10 BP 130/67 09/07/19 12:10 Pulse Ox 99 09/07/19 12:10 Intake & Output 09/06/19 09/07/19 09/07/19 18:59 06:59 18:59 Intake Total 1058 540 480 Balance 1058 540 480 Weight 62.4 kg 61.9 kg Intake: IV 100 cefTRIAXone 1 gm In 100 Sodium Chloride 0.9% 50 ml @ 100 mls/hr IVPB Q24HR ORAL Rx#:[id number] Intake, IV Titration 500 Amount Sodium Chloride 0.9% 1, 500 000 ml @ 500 mls/hr IV . Q2H [facility] Rx#:[id number] Oral 458 540 480 Other: Voiding Method Toilet Toilet Toilet Diaper Diaper Diaper Incontinent Incontinent Incontinent # Voids 1 1 3 # Bowel Movements 1 2 - Exam PHYSICAL EXAMINATION: GENERAL: 84-year-old gentleman in no acute stress at the time of my examination HEENT: Head is atraumatic, normocephalic. Pupils equal, round. Sclera anicteric. Conjunctiva are clear. Mucous membranes of the mouth are moist. Neck is supple. There is no elevated jugular venous pressure. No carotid bruit is heard. HEART EXAMINATION: S1 and S2 irregularly irregular CHEST EXAMINATION: Lungs reveal improvement in air entry to the bases ABDOMEN: Soft, nontender. Bowel sounds are heard. No organomegaly noted. EXTREMITIES: 2+ peripheral pulses with trace edema to the right lower extremity no edema to the left . NEUROLOGIC patient is awake, alert and oriented 3 . - Labs CBC & Chem 7: 09/05/19 05:48 09/05/19 05:48 Labs: Abnormal Lab Results - Last 24 Hours (Table) 09/06/19 09/06/19 09/07/19 Range/Units 17:02 21:04 06:20 POC Glucose (mg/dL) 141 H 165 H 101 H (75-99) mg/dL Microbiology - Last 24 Hours (Table) 09/02/19 16:15 Blood Culture - Preliminary Blood No Growth after 96 hours 09/02/19 16:00 Blood Culture - Preliminary Blood No Growth after 96 hours Assessment and Plan Plan: Assessment and plan #1 symptoms of progressively worsening shortness of breath with evidence of mild congestive cardiac failure, most recent echo performed in the office showed a normal LV function, diastolic acute on chronic. Possible acute tracheobronchitis. #2 atrial fibrillation with moderately rapid ventricular response, patient has documented paroxysmal atrial fibrillation in the past, not currently on anticoagulation #3 hyperlipidemia #4 nicotine dependence #5 hypertension #6 hypertension #7 history of bladder cancer #87 mm nodule noticed on chest x-ray Plan From cardiology's perspective, we'll recommend to continue this patient on his current medications. He may be able to be discharged home once cleared by primary. We will follow this patient along with you now on an as-needed basis only, please don't hesitate to call with any questions. DNP note has been reviewed, I agree with a documented findings and plan of care. Patient was seen and examined.
--- NOTE | 2019-09-08 13:09 | P.CNPUL ---
History of Present Illness Consult date: 09/06/19 Reason for consult: dyspnea, cough Chief complaint: Increased lower extremity swelling or shortness of breath History of present illness: This is a 84-year-old male with past medical history of shortness of breath chronic in nature his been more short of breath than baseline for the last several month in addition started having swelling of the lower extremity a few months ago which have been progressive patient also developed problems associated with weight loss and poor appetite and lost about 30 pounds in 3 months he has a significant history of bladder cancer require surgery in November unfortunately not all the tumor was removed, his x-ray shows mild to moderate left-sided pleural effusion with atelectasis and emphysema the fluid is small in size not approachable with thoracentesis Chest x-ray on presentation here showed COPD with bilateral infiltrate and small effusion. 7 mm nodule in the right midlung computed tomography scan is recommended. Suspect a soft tissue fold-over overlying the left lower chest rather than small pneumothorax. Blood pressure this morning 97/50 with a heart rate in the 90s. Patient continues to be in atrial fibrillation. White blood cell count on admission 13.8, 11.5 this morning, hemoglobin 10 on admission 8.9 this morning, platelet count 269. Sodium 145, potassium 3.3, BUN 22 and creatinine 1.0. Magnesium level 2.0. Troponin 0.012, BNP level 2560. Review of Systems All systems: negative Past Medical History Past Medical History: Atrial Fibrillation, Cancer, Hyperlipidemia, Hypertension, Osteoarthritis (OA) Additional Past Medical History / Comment(s): prostate cancer, bladder cancer History of Any Multi-Drug Resistant Organisms: None Reported Past Surgical History: Heart Catheterization, Prostate Surgery Additional Past Surgical History / Comment(s): hemorrhoid surgery bladder surg Past Anesthesia/Blood Transfusion Reactions: No Reported Reaction Past Psychological History: No Psychological Hx Reported Smoking Status: Light tobacco smoker Past Alcohol Use History: None Reported Additional Past Alcohol Use History / Comment(s): pt states he smokes 2-3 cigarettes in a day, but not an every day smoker. He drinks a beer occasionally. He has started using a cane for the past few days. He does not have oxygen, CPAP at home. Past Drug Use History: None Reported - Past Family History Mother Family Medical History: No Reported History Additional Family Medical History / Comment(s): Mother in her 70s or 80s from some type of cancer. Father Additional Family Medical History / Comment(s): Father in his 70s or 80s from a stroke. Brother(s) Additional Family Medical History / Comment(s): Patient has 1 sister with no major medical problems. Patient does not have any brothers. Daughter(s) Additional Family Medical History / Comment(s): Patient has 2 daughters and one has hypertension. Son(s) Additional Family Medical History / Comment(s): Patient has 2 sons and one from coronary artery disease. Medications and Allergies Home Medications Medication Instructions Recorded Confirmed Type Lisinopril [Zestril] 2.5 mg PO HS 12/03/18 09/02/19 History Multivitamins, Thera [Multivitamin 1 tab PO HS 12/03/18 09/02/19 History (formulary)] Budesonide [Pulmicort] 0.5 mg INHALATION RT-BID nebu 09/07/19 Rx HYDROcodone/APAP 5-325MG [[place] 5] 1 each PO Q4HR PRN #18 tab 09/07/19 Rx Ipratropium-Albuterol Nebulize 3 ml INHALATION RT-Q6H ampul.neb 09/07/19 Rx [Duoneb 0.5 mg-3 mg/3 ml Soln] Metoprolol Tartrate [Lopressor] 50 mg PO BID tab 09/07/19 Rx Mirtazapine [Remeron] 7.5 mg PO HS #30 tab 09/07/19 Rx Pantoprazole [Protonix] 40 mg PO AC-BRKFST tablet. 09/07/19 Rx predniSONE 0 mg PO DIRECTED #30 tab 09/07/19 Rx Allergies Allergy/AdvReac Type Severity Reaction Status Date / Time No Known Allergies Allergy Verified 09/02/19 13:11 Physical Exam Vitals: Vital Signs Temp Pulse Pulse Resp BP Pulse Ox 09/06/19 15:57 97.8 F 86 20 123/58 98 09/06/19 11:45 97.5 F L 67 20 119/62 96 09/06/19 08:42 58 L 09/06/19 08:29 58 L 96 09/06/19 08:00 96.9 F L 54 L 20 93/57 98 09/06/19 04:00 97.4 F L 74 18 119/65 100 09/06/19 00:00 97.3 F L 69 18 123/74 93 L 09/05/19 20:00 97.0 F L 74 18 101/53 96 09/05/19 16:41 82 09/05/19 16:28 70 Intake and Output 09/06/19 09/06/19 09/06/19 06:59 14:59 22:59 Intake Total 236 Output Total 300 Balance -300 236 Intake: Oral 236 Output: Urine 300 Other: Voiding Method Toilet Toilet Toilet Diaper Diaper Diaper Incontinent Incontinent Incontinent # Voids 1 1 1 # Bowel Movements 1 Weight 62.4 kg 62.4 kg GENERAL: 84-year-old gentleman in no acute stress at the time of my examination HEENT: Head is atraumatic, normocephalic. Pupils equal, round. Sclera anicteric. Conjunctiva are clear. Mucous membranes of the mouth are moist. Neck is supple. There is no elevated jugular venous pressure. No carotid bruit is heard. HEART EXAMINATION: S1 and S2 irregularly irregular CHEST EXAMINATION: Lungs reveal improvement in air entry to the bases ABDOMEN: Soft, nontender. Bowel sounds are heard. No organomegaly noted. EXTREMITIES: 2+ peripheral pulses with trace edema to the right lower extremity no edema to the left . NEUROLOGIC patient is awake, alert and oriented 3 Results - Laboratory Findings CBC and BMP: 09/05/19 05:48 09/05/19 05:48 PT/INR, D-dimer PT 10.3 sec (9.0-12.0) 09/02/19 13:52 INR 1.0 (<1.2) 09/02/19 13:52 Abnormal lab findings: Abnormal Labs 09/02/19 09/02/19 09/03/19 13:00 13:00 07:50 WBC 13.8 H 11.5 H RBC 3.74 L 3.24 L Hgb 10.0 L 8.9 L Hct 33.5 L 29.2 L MCHC 29.8 L 30.5 L Neutrophils # 11.2 H 10.4 H Lymphocytes # 0.9 L Potassium Chloride 110 H Carbon Dioxide 20 L BUN Glucose 111 H POC Glucose (mg/dL) AST 62 H ALT 20 L Total Protein Albumin 3.2 L 09/03/19 09/03/1909/03/19 07:50 12:25 16:57 WBC RBC Hgb Hct MCHC Neutrophils # Lymphocytes # Potassium 3.3 L Chloride Carbon Dioxide BUN 22 H Glucose 151 H POC Glucose (mg/dL) 185 H 220 H AST ALT Total Protein Albumin 3.0 L 09/03/19 09/04/19 09/04/19 20:10 06:10 06:40 WBC 19.0 H RBC 3.06 L Hgb 7.9 L Hct 27.3 L MCHC 29.1 L Neutrophils # 18.0 H Lymphocytes # 0.6 L Potassium Chloride Carbon Dioxide BUN Glucose POC Glucose (mg/dL) 180 H 178 H AST ALT Total Protein Albumin 09/04/19 09/04/19 09/04/19 06:40 11:51 17:24 WBC RBC Hgb Hct MCHC Neutrophils # Lymphocytes # Potassium Chloride 109 H Carbon Dioxide BUN 37 H Glucose 143 H POC Glucose (mg/dL) 208 H 127 H AST ALT Total Protein 5.9 L Albumin 2.7 L 09/04/19 09/05/19 09/05/19 20:43 05:48 05:48 WBC 20.9 H RBC 3.01 L Hgb 8.2 L Hct 27.1 L MCHC 30.2 L Neutrophils # 19.8 H Lymphocytes # 0.6 L Potassium Chloride 112 H Carbon Dioxide BUN 41 H Glucose 112 H POC Glucose (mg/dL) 235 H AST ALT Total Protein 5.7 L Albumin 2.7 L 09/05/19 09/05/19 09/05/19 06:12 11:54 12:41 WBC RBC Hgb Hct MCHC Neutrophils # Lymphocytes # Potassium Chloride Carbon Dioxide BUN Glucose POC Glucose (mg/dL) 116 H 329 H 252 H AST ALT Total Protein Albumin 09/05/19 09/05/19 09/06/19 17:55 20:47 06:21 WBC RBC Hgb Hct MCHC Neutrophils # Lymphocytes # Potassium Chloride Carbon Dioxide BUN Glucose POC Glucose (mg/dL) 74 L 160 H 117 H AST ALT Total Protein Albumin 09/06/19 12:12 WBC RBC Hgb Hct MCHC Neutrophils # Lymphocytes # Potassium Chloride Carbon Dioxide BUN Glucose POC Glucose (mg/dL) 125 H AST ALT Total Protein Albumin - Diagnostic Findings Chest x-ray: report reviewed, image reviewed CT scan - chest: report reviewed, image reviewed (Finding as noted above, CT confirmed presence of small pleural effusion with fibrotic changes bilaterally there is a left upper lobe nodule was seen patient will need a PET scan as outpatient) Assessment and Plan Assessment: Progressive congestive heart failure likely acute on chronic diastolic heart failure with a normal LV function on recent echo Chronic atrial fibrillation with a rapid ventricular response appears to be responding Left upper lobe nodule for PET scan as outpatient Small left-sided pleural effusion cannot do a thoracentesis due to small size Weight loss and poor appetite with cachexia History of bladder cancer Plan: Continue supportive care Gentle diuresis PET scan as outpatient Smoking cessation advised Ideology services following Further recommendations pending plan of care as per clinical response of the patient
--- NOTE | 2019-09-08 13:14 | P.PN ---
Subjective Progress Note Date: 09/07/19 Principal diagnosis: Progressive congestive heart failure likely acute on chronic diastolic heart failure with a normal LV function on recent echo Chronic atrial fibrillation with a rapid ventricular response appears to be responding Left upper lobe nodule for PET scan as outpatient Small left-sided pleural effusion cannot do a thoracentesis due to small size Weight loss and poor appetite with cachexia History of bladder cancer 09/07/2019, patient seen eval examined during the rounds last short of breath swelling is coming down and patient is being diuresed, patient is being placed in extended care facility advised to follow with primary catering sous chef for left upper lobe nodule evaluation so a PET scan can be performed as out pt This is a 84-year-old male with past medical history of shortness of breath chronic in nature his been more short of breath than baseline for the last several month in addition started having swelling of the lower extremity a few months ago which have been progressive patient also developed problems associated with weight loss and poor appetite and lost about 30 pounds in 3 months he has a significant history of bladder cancer require surgery in November unfortunately not all the tumor was removed, his x-ray shows mild to moderate left-sided pleural effusion with atelectasis and emphysema the fluid is small in size not approachable with thoracentesis Chest x-ray on presentation here showed COPD with bilateral infiltrate and small effusion. 7 mm nodule in the right midlung computed tomography scan is recommended. Suspect a soft tissue fold-over overlying the left lower chest rather than small pneumothorax. Blood pressure this morning 97/50 with a heart rate in the 90s. Patient continues to be in atrial fibrillation. White blood cell count on admission 13.8, 11.5 this morning, hemoglobin 10 on admission 8.9 this morning, platelet count 269. Sodium 145, potassium 3.3, BUN 22 and creatinine 1.0. Magnesium level 2.0. Troponin 0.012, BNP level 2560. Objective - Vital Signs Vital signs: Vital Signs Temp 97.5 F L 09/07/19 12:10 Pulse 78 09/07/19 13:27 Resp 20 09/07/19 12:10 BP 130/67 09/07/19 12:10 Pulse Ox 99 09/07/19 12:10 Intake & Output 09/07/19 09/08/19 09/08/19 18:59 06:59 18:59 Intake Total 480 Balance 480 Intake: Oral 480 Other: Voiding Method Toilet Diaper Incontinent # Voids 3 # Bowel Movements 2 - Exam GENERAL: 84-year-old gentleman in no acute stress at the time of my examination HEENT: Head is atraumatic, normocephalic. Pupils equal, round. Sclera anicteric. Conjunctiva are clear. Mucous membranes of the mouth are moist. Neck is supple. There is no elevated jugular venous pressure. No carotid bruit is heard. HEART EXAMINATION: S1 and S2 irregularly irregular CHEST EXAMINATION: Lungs reveal improvement in air entry to the bases ABDOMEN: Soft, nontender. Bowel sounds are heard. No organomegaly noted. EXTREMITIES: 2+ peripheral pulses with trace edema to the right lower extremity no edema to the left . NEUROLOGIC patient is awake, alert and oriented 3 - Labs CBC & Chem 7: 09/05/19 05:48 09/05/19 05:48 Labs: Microbiology - Last 24 Hours (Table) 09/02/19 16:15 Blood Culture - Preliminary Blood No Growth after 120 hours 09/02/19 16:00 Blood Culture - Preliminary Blood No Growth after 120 hours Assessment and Plan Assessment: Progressive congestive heart failure likely acute on chronic diastolic heart failure with a normal LV function on recent echo Chronic atrial fibrillation with a rapid ventricular response appears to be responding Left upper lobe nodule for PET scan as outpatient Small left-sided pleural effusion cannot do a thoracentesis due to small size Weight loss and poor appetite with cachexia History of bladder cancer Plan: Continue supportive care Gentle diuresis PET scan as outpatient Smoking cessation advised [employer] services following Patient is advised to follow with his primary catering sous chef Further recommendations pending plan of care as per clinical response of the pat ient Time with Patient: Greater than 30
== END 2019-09-07 14:55 | DRG 190 ==
LOC: SUPCPDRO 12:21 → EC 12:21 → 3SCARD 15:55
PROVIDERS: ADMIT Family Medicine; ATTEND Family Medicine
DX: J44.1 Chronic obstructive pulmonary disease with (acute) exacerbation (principal); I50.33 Acute on chronic diastolic (congestive) heart failure; J18.9 Pneumonia, unspecified organism; J84.9 Interstitial pulmonary disease, unspecified; J98.11 Atelectasis; R64 Cachexia; Z68.1 Body mass index [BMI] 19.9 or less, adult; J44.0 Chronic obstructive pulmonary disease with (acute) lower respiratory infection; I95.9 Hypotension, unspecified; I11.0 Hypertensive heart disease with heart failure; I48.0 Paroxysmal atrial fibrillation; R31.9 Hematuria, unspecified; I45.10 Unspecified right bundle-branch block; E78.00 Pure hypercholesterolemia, unspecified; E78.5 Hyperlipidemia, unspecified; E87.6 Hypokalemia; F17.210 Nicotine dependence, cigarettes, uncomplicated; I25.10 Atherosclerotic heart disease of native coronary artery without angina pectoris; J20.9 Acute bronchitis, unspecified; T38.0X5A Adverse effect of glucocorticoids and synthetic analogues, initial encounter; M19.90 Unspecified osteoarthritis, unspecified site; R73.9 Hyperglycemia, unspecified; R91.1 Solitary pulmonary nodule; R41.0 Disorientation, unspecified; R63.4 Abnormal weight loss; R55 Syncope and collapse; I49.3 Ventricular premature depolarization; D63.0 Anemia in neoplastic disease; Z79.82 Long term (current) use of aspirin; Z79.899 Other long term (current) drug therapy; Z85.46 Personal history of malignant neoplasm of prostate; Z85.51 Personal history of malignant neoplasm of bladder
CPT/HCPCS: 36415; 71046; 71250; 80053; 83735; 83880; 84443; 84484; 85025; 85610; 85730; 87040; 93005; 93306; 94640; 94760; 96365; 96366; 96367; 96375; 99291